=== PATIENT | female | born 1950 | race Caucasian/White ===

== ENCOUNTER 2017-12-08 16:02 | Outpatient (CLI) | payer MEDICARE | END 2017-12-08 16:03 | disposition home or self-care (01) | LOC: LABBT 16:02 | PROVIDERS: ATTEND Internal Medicine Cardiovascular Disease | DX: Z01.810 Encounter for preprocedural cardiovascular examination (principal); R94.39 Abnormal result of other cardiovascular function study | CPT/HCPCS: 93005; 93010 ==

== ENCOUNTER → 2017-12-13 | Day surgery (SDC) | payer MEDICARE ==
[2017-12-08 16:50] VITALS: BMI 30.2
[~2017-12-13] MED LIST: Fentanyl 100 MCG/2 ML VIAL ONE; Heparin 10,000 UNITS/1 ML VIAL ONE; Iopamidol 370 76% 100 ML VIAL ONE; Lidocaine 1% (PF) 30 ML VIAL ONE; Midazolam HCl 2 mg/2 ml Vial ONE; Nitroglycerin 100MG/250ML BOT 250 ML ONE; Verapamil 5 MG/2 ML VIAL ONE
== END ==
LOC: CCL 06:25
PROVIDERS: ATTEND Internal Medicine Cardiovascular Disease
PROC: 4A023N7 Measurement of Cardiac Sampling and Pressure, Left Heart, Percutaneous Approach (ICD-10-PCS; principal; 2017-12-13)
PROC: B2111ZZ Fluoroscopy of Multiple Coronary Arteries using Low Osmolar Contrast (ICD-10-PCS; 2017-12-13)
DX: I25.10 Atherosclerotic heart disease of native coronary artery without angina pectoris (principal); G30.0 Alzheimer's disease with early onset; F02.80 Dementia in other diseases classified elsewhere, unspecified severity, without behavioral disturbance, psychotic disturbance, mood disturbance, and anxiety; I48.2 Chronic atrial fibrillation; Z87.891 Personal history of nicotine dependence; Z79.51 Long term (current) use of inhaled steroids; Z79.82 Long term (current) use of aspirin; Z79.01 Long term (current) use of anticoagulants; Z79.899 Other long term (current) drug therapy
CPT/HCPCS: 93458; C1769; 99152; J1644; J2001; J2250; J3010

== ENCOUNTER 2018-04-19 10:52 | Outpatient (CLI) | payer MEDICARE | END 2018-04-19 10:53 | disposition home or self-care (01) | LOC: BICMAMMO 10:52 | PROVIDERS: ATTEND Family Medicine | DX: Z12.31 Encounter for screening mammogram for malignant neoplasm of breast (principal); N64.89 Other specified disorders of breast | CPT/HCPCS: 77063; 77067 ==

== ENCOUNTER 2018-05-24 09:01 | Outpatient (CLI) | payer MEDICARE ==
--- NOTE | 2018-05-24 11:01 | ULT ---
RIGHT BREAST ULTRASOUND: Date: 05/24/18 HISTORY: Abnormal mammogram. FINDINGS: Correlation is made with mammograms from today. Sonographic evaluation of the right upper outer breast demonstrates a 1.1 x 0.5 x 0.5 cm hypoechoic n onshadowing nodule with echogenic hilum consistent with lymph node, corresponding to the mammographic finding at the 10 o'clock position. IMPRESSION: BIRADS 2: Benign Finding(s) Return to annual mammographic screening. POS: URVASHI
== END 2018-05-24 09:02 | disposition home or self-care (01) ==
LOC: BICMAMMO 09:01
PROVIDERS: ATTEND Family Medicine
DX: R92.2 Inconclusive mammogram (principal)
CPT/HCPCS: 76642; 77065; G0279

== ENCOUNTER 2019-06-05 11:39 | Inpatient (IN) | payer MEDICARE ==
[~2019-06-05 11:39] MED LIST changes: -Fentanyl 100 MCG/2 ML VIAL ONE; -Heparin 10,000 UNITS/1 ML VIAL ONE; -Lidocaine 1% (PF) 30 ML VIAL ONE; -Midazolam HCl 2 mg/2 ml Vial ONE; -Nitroglycerin 100MG/250ML BOT 250 ML ONE; -Verapamil 5 MG/2 ML VIAL ONE
[2019-06-05 11:59] LABS: #Basophils 0.1 thou/uL (0.0-0.2); #Eosinphils 0.1 thou/uL (0.0-0.7); #Lymphocytes 1.6 thou/uL (1.20-3.40); #Monocytes 0.5 thou/uL (0.11-0.59); %Eosinophils 1.9 % (0.0-10.0); %Lymphocytes 30.7 % (21.0-51.0); %Monocytes 8.7 % (0.0-10.0); %Neutrophils 57.8 % (42.0-75.0); Hemoglobin 14.1 g/dL (12.0-16.0); Mean Corpuscular HGB CONC 33.7 g/dL (32.0-36.0); Mean Corpuscular Hemoglobin 29.2 pg (27.0-31.0); Mean Corpuscular Volume 86.9 fL (78.0-98.0); Platelet Count 310 thou/uL (130-400); RBC Distribution Width 11.6 % (11.5-14.5); Red Blood Cell (RBC) Count 4.82 mill/uL (4.20-5.40); White Blood Cell (WBC) Count 5.1 thou/uL (4.8-10.8)
--- NOTE | 2019-06-05 12:03 | CT ---
CT BRAIN WITHOUT CONTRAST: HISTORY:Level 1 stroke. Left-sided deficits, left-sided facial droop and slurred speech COMPARISON:None FINDINGS: There are foci of decreased attenuation in the periventricular white matter, consistent with chronic small vessel ischemic disease. No evidence of acute infarct, hemorrhage, midline shift or abnormal extra-axial fluid collections is seen. The ventricular size is appropriate and the basilar cisterns are patent. The bony calvarium is intact. The visualized paranasal sinuses and mastoid air cells are well aerated. IMPRESSION: No CT evidence of acute intracranial process. Discussed over the telephone with ER physician Dr. Aponte at 11:59 AM
[2019-06-05 12:08] LABS: INR-International Normal Ratio 2.1; Prothrombin Time 23.3 SEC (12.0-14.7)
[2019-06-05 12:09] LABS: PTT 59.3 SEC (22.9-36.1)
[2019-06-05 12:16] LABS: ALT (SGPT) 21 U/L (8-55); AST (SGOT) 25 U/L (5-34); Albumin 4.4 g/dL (3.4-4.8); Alkaline Phosphatase 116 U/L (40-110); Anion Gap 12 mmol/L (10-20); BUN (Urea Nitrogen) 17 mg/dL (9.8-20.1); Bilirubin, Total 0.5 mg/dL (0.2-1.2); CK (CPK) 165 U/L (29-168); Calc. Creatinine Clearance 0 mL/min (70-130); Calcium 9.6 mg/dL (7.8-10.44); Carbon Dioxide 29 mmol/L (23-31); Chloride 102 mmol/L (98-107); Estimated GFR-MDRD 47; Globulin 3.7 g/dL (2.4-3.5); Glucose 113 mg/dL (80-115); Potassium 4.4 mmol/L (3.5-5.1); Protein, Total 8.1 g/dL (6.0-8.3); Sodium 139 mmol/L (136-145)
--- NOTE | 2019-06-05 12:18 | RAD ---
XR Chest 1 View Portable HISTORY: Facial droop with left-sided weakness COMPARISON: None FINDINGS: The heart size is normal. The lungs are well expanded without focal areas of consolidation, pneumothorax or pleural effusions. IMPRESSION: No radiographic evidence of acute cardiopulmonary process.
--- NOTE | 2019-06-05 12:41 | CT ---
CT ANGIOGRAM NECK WITH CONTRAST CT ANGIOGRAM BRAIN WITH CONTRAST: DATE: 06/05/2019 HISTORY: 68-year-old female with acute stroke symptoms: Dysarthria, left upper extremity weakness, and left fa cial droop. TECHNIQUE: After IV contrast injection, arterial bolus chasing technique scan performed from aortopulmonic windo w to vertex of head. Coronal and sagittal 3-D MIP reconstructions. FINDINGS: Brachiocephalic: No stenosis. Right subclavian: No stenosis. Left subclavian: No stenosis. Right vertebral: No stenosis. Mild calcified plaque in intracranial portion. Left vertebral: No stenosis. Mild calcified plaque in intracranial portion. Right common carotid: No stenosis. Left common carotid: No stenosis. Right internal carotid, cervical: Normal Left internal carotid, cervical: Single small focal calcified plaque at origin. No hemodynamically si gnificant stenosis. Carotid siphons: Mild calcified plaque bilaterally. No evidence of high-grade stenosis. Basilar: No high-grade stenosis. Middle cerebral arteries: M1 segments are bilaterally patent with no evidence of high-grade stenosis or thrombosis. Anterior cerebral arteries: Bilateral A1 and A2 segments demonstrate no occlusion or thrombosis. Righ t A1 segment appears to be fenestrated. Posterior cerebral arteries: Bilaterally patent. This stroke alert protocol report was called by Dr. Ray to Dr. Aponte's medical technologist generalist Aliya macias at 12:38 PM on 06/05/2019 IMPRESSION: 1. No evidence of high-grade stenosis of major arteries of neck. 2. No evidence of M1 segment middle cerebral artery thrombosis.
[2019-06-05] MEDS ORDERED: Aspirin 325 MG TAB ONE (13:28)
[2019-06-05 15:27] VITALS: BMI 29.5
[2019-06-05] MEDS ORDERED: Ondansetron ODT 4 MG TAB PO PRN (15:28)
[2019-06-05] MEDS ORDERED: HYDROcodone/Acetaminophen 5/325 mg Tablet PO PRN (15:28)
[2019-06-05] MEDS ORDERED: Senokot S 8.6-50 MG TAB PO PRN (15:28)
[2019-06-05] MEDS ORDERED: Ondansetron PF 4 MG/2 ML Vial IVP PRN (15:28)
[2019-06-05] MEDS ORDERED: HYDROcodone/Acetaminophen 7.5/325 mg Tablet PO PRN (15:28)
[2019-06-05] MEDS ORDERED: Bisacodyl 5 MG TAB PO PRN (15:28)
[2019-06-05] MEDS ORDERED: Acetaminophen 325 MG TAB PO PRN (15:28)
[2019-06-05] MEDS ORDERED: Benzonatate 100 MG CAP PO PRN (15:32)
[2019-06-05] MEDS ORDERED: Labetalol HCl 100 MG/20 ML VIAL SLOW IVP PRN (15:32)
[2019-06-05] MEDS ORDERED: Docusate 100 MG CAP PO PRN (15:32)
--- NOTE | 2019-06-05 16:34 | PDOC.HHP ---
Hospitalist HPI - History of Present Illness Left sided weakness History of Present Illness: Ms. Diamond is a very pleasant 68-year-old white female with past medical history of atrial fibrillation on Coumadin and dementia who presents with left- sided weakness. Patient was in her regular state of good health when all of a sudden this morning at breakfast her daughter noticed that she was having profound weakness on the left side of her body. Patient was unable to move her arm or her leg. Patient did not have any precipitating or alleviating factors. Patient denies palpitations prior to event. Patient did not lose consciousness. Patient did not fall. Patient is not have any trauma to head or limbs. Patient did not have any trouble speaking though she was very confused at the time. By the time the patient arrived to the emergency department her symptoms have resolved completely. I find the patient in the stroke unit she is sitting upright in bed she is breathing well on room air. Patient has no appreciated focal neurologic deficits. Patient is talking fleuntly in full sentences. Patient knows her name, she knows she is in [facility], she admits that she does not know the year and guesses it is 2016. Patient does know the season is fall however she does not know which month it is. 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 Patient does acknowledge she has memory problems. Patient has no pain. Patient has no other acute complaints at this time. Patient admitted to stroke unit for further evaluation. Neurology consultation requested for further recommendations. Hospitalist ROS - Review of Systems All other systems reviewed; all pertinent +/- noted in HPI/Subj Hospitalist History - Past Medical History Source: patient Cardiac: reports: AFIB, HTN, Hyperlipidemia CHIEF PROJECTIONIST: reports: Dementia. denies: CVA, Seizure, TIA Gastrointestinal: reports: GERD Musculoskeletal: reports: Osteoarthritis - Family History Family History: reports: hypertension, Other (atrial fibrillation) - Social History Alcohol: reports: None Drugs: reports: none Living Situation: With Family Domestic Violence: Negative Activity level: independent ambulation - Exam General Appearance: NAD Eye: PERRL, anicteric sclera ENT: normocephalic atraumatic, no oropharyngeal lesions, moist mucosa Neck: supple, symmetric, no lymphadenopathy Heart: no murmur, no gallops, no rubs, irregular Respiratory: CTAB, no wheezes, no rales, no ronchi, normal chest expansion Gastrointestinal: soft, non-tender, non-distended, normal bowel sounds, no palpable masses, no guarding, no rigidity Extremities: no edema Skin: no lesions, no rashes Neurological: cranial nerve grossly intact, normal sensation to touch, no focal deficits Musculoskeletal: normal tone, normal strength, no muscle wasting Psychiatric: normal affect, oriented to person, oriented to place Hospitalist Results - Labs Result Diagrams: 06/05/19 11:48 06/05/19 11:48 Lab results: WBC 5.1 thou/uL (4.8-10.8) 06/05/19 11:48 Hgb 14.1 g/dL (12.0-16.0) 06/05/19 11:48 Hct 41.9 % (36.0-47.0) 06/05/19 11:48 MCV 86.9 fL (78.0-98.0) 06/05/19 11:48 Plt Count 310 thou/uL (130-400) 06/05/19 11:48 Neutrophils % 57.8 % (42.0-75.0) 06/05/19 11:48 Sodium 139 mmol/L (136-145) 06/05/19 11:48 Potassium 4.4 mmol/L (3.5-5.1) 06/05/19 11:48 Chloride 102 mmol/L (98-107) 06/05/19 11:48 Carbon Dioxide 29 mmol/L (23-31) 06/05/19 11:48 BUN 17 mg/dL (9.8-20.1) 06/05/19 11:48 Creatinine 1.16 mg/dL (0.6-1.1) H 06/05/19 11:48 Glucose 113 mg/dL (80-115) 06/05/19 11:48 Calcium 9.6 mg/dL (7.8-10.44) 06/05/19 11:48 Total Bilirubin 0.5 mg/dL (0.2-1.2) 06/05/19 11:48 AST 25 U/L (5-34) 06/05/19 11:48 ALT 21 U/L (8-55) 06/05/19 11:48 Alkaline Phosphatase 116 U/L (40-110) H 06/05/19 11:48 Creatine Kinase 165 U/L (29-168) 06/05/19 11:48 Troponin I Less than 0.010 ng/mL (< 0.028) 06/05/19 11:48 Serum Total Protein 8.1 g/dL (6.0-8.3) 06/05/19 11:48 Albumin 4.4 g/dL (3.4-4.8) 06/05/19 11:48 - Radiology Interpretation CT scan - head Status: image reviewed by me CT scan - chest Status: image reviewed by me Hospitalist H&P A/P - Problem (1) TIA (transient ischemic attack) Code(s): G45.9 - TRANSIENT CEREBRAL ISCHEMIC ATTACK, UNSPECIFIED Status: Acute (2) Afib Code(s): I48.91 - UNSPECIFIED ATRIAL FIBRILLATION Status: Chronic (3) HTN (hypertension) Code(s): I10 - ESSENTIAL (PRIMARY) HYPERTENSION Status: Chronic (4) HLD (hyperlipidemia) Code(s): E78.5 - HYPERLIPIDEMIA, UNSPECIFIED Status: Chronic (5) Osteoarthritis Code(s): M19.90 - UNSPECIFIED OSTEOARTHRITIS, UNSPECIFIED SITE Status: Chronic (6) Dementia Code(s): F03.90 - UNSPECIFIED DEMENTIA WITHOUT BEHAVIORAL DISTURBANCE Status: Chronic (7) Depression Code(s): F32.9 - MAJOR DEPRESSIVE DISORDER, SINGLE EPISODE, UNSPECIFIED Status : Chronic - Plan Plan: Plan: medical unit with telemetry stroke unit neurology consultation, recommendations appreciated MRI brain echocardiogram metabolic workup No tPA given secondary to low NIH scale and resolution of symptoms CTA head and neck is negative CT had negative continue home medications is able patient is therapeutic on Coumadin daily PT/INR PT/OT evaluation treatment healthy heart diet replace electrolytes as needed
--- NOTE | 2019-06-05 17:02 | MRI ---
BRAIN MRI WITHOUT CONTRAST: 06/05/19 COMPARISON: None. HISTORY: Difficulty using hands, clinical concern for acute infarction. TECHNIQUE: Multiplanar and multisequence MR imaging of the brain provided without contrast. FINDINGS: The diffusion weighted imaging demonstrates no evidence for acute infarction. The axial gradient echo imaging demonstrates no evidence for intracranial hemorrhage. Arterial flow voids at the axial level of the skull base appear grossly unremarkable on the T2 weight ed imaging. There is multifocal periventricular, deep, and subcortical white matter T2 and FLAIR hyperintensity, evidence of significant small vessel disease. There is associated mild/moderate cerebral volume loss . There is no midline shift or mass effect. Regional bone marrow signal intensity appears within norm al limits. IMPRESSION: Small vessel disease and cerebral volume loss with no evidence for acute infarction. POS: TPC
[2019-06-05] MEDS: Warfarin Sodium 5 MG TAB PO SCH (18:12)
[2019-06-05] MEDS: Aspirin 81 mg Enteric Coated Tablet PO SCH (21:19)
[2019-06-05] MEDS: Simvastatin 5 MG TAB PO SCH (21:19)
[2019-06-05] MEDS: Famotidine 20 MG TAB PO SCH (21:19)
[2019-06-05] MEDS: diphenhydrAMINE 25 MG CAP PO PRN (21:20)
[2019-06-05] MEDS: busPIRone HCl 10 MG TAB PO SCH (21:20)
[2019-06-05] MEDS: Donepezil HCl 5 MG TAB PO SCH (21:20)
[2019-06-06 04:49] LABS: #Eosinphils 0.1 thou/uL (0.0-0.7); #Lymphocytes 2.1 thou/uL (1.20-3.40); #Monocytes 0.6 thou/uL (0.11-0.59); #Neutrophils 2.3 thou/uL (1.40-6.50); %Basophils 0.9 % (0.0-1.0); %Eosinophils 2.2 % (0.0-10.0); %Lymphocytes 41.2 % (21.0-51.0); %Monocytes 11.5 % (0.0-10.0); %Neutrophils 44.2 % (42.0-75.0); Hemoglobin 12.5 g/dL (12.0-16.0); Mean Corpuscular Hemoglobin 29.5 pg (27.0-31.0); Mean Platelet Volume 7.3 fL (7.4-10.4); Platelet Count 249 thou/uL (130-400); RBC Distribution Width 11.6 % (11.5-14.5); Red Blood Cell (RBC) Count 4.24 mill/uL (4.20-5.40); White Blood Cell (WBC) Count 5.2 thou/uL (4.8-10.8)
[2019-06-06 04:56] LABS: INR-International Normal Ratio 2.3; Prothrombin Time 25.2 SEC (12.0-14.7)
[2019-06-06 05:11] LABS: Anion Gap 11 mmol/L (10-20); BUN (Urea Nitrogen) 17 mg/dL (9.8-20.1); Calc. Creatinine Clearance 71 mL/min (70-130); Carbon Dioxide 27 mmol/L (23-31); Cardiac Risk 3.9 (Less than 4.5); Chloride 105 mmol/L (98-107); Cholesterol 175 mg/dl (< 200 Desired); Estimated GFR-MDRD 55; Glucose 94 mg/dL (80-115); HDL Cholesterol 45 mg/dL (>60 Neg Risk); LDL Cholesterol, Calculated 105 mg/dL; Potassium 4.2 mmol/L (3.5-5.1); Sodium 139 mmol/L (136-145); Triglycerides 125 mg/dL (Less than 150)
[2019-06-06] MEDS ORDERED: Prevnar 13-Val Conj/PF 0.5 ML SYRINGE IM ONE (09:00)
[2019-06-06] MEDS ORDERED: FLU VACC TS2019-20(65YR UP)/PF 180 MCG/0.5 ML SYRINGE IM ONE (09:00)
[2019-06-06] MEDS: Multivit, Therapeutic 1 TAB PO SCH (09:59)
[2019-06-06] MEDS: Famotidine 20 MG TAB PO SCH ×2 (09:59→20:23)
[2019-06-06] MEDS: busPIRone HCl 10 MG TAB PO SCH ×2 (09:59→20:22)
[2019-06-06] MEDS: FLUoxetine HCl 10 MG CAP PO SCH (09:59)
[2019-06-06] MEDS: Loratadine 10 MG TAB PO SCH (10:00)
[2019-06-06] MEDS: Bisoprolol Fumarate 5 MG TAB PO SCH (10:00)
[2019-06-06] MEDS: Fluticasone Propionate Nasal Spray 16 gm Bottle NASAL SCH (10:01)
--- NOTE | 2019-06-06 15:24 | PDOC.HOSPP ---
- Subjective Encounter Date: 06/06/19 Encounter Time: 15:22 Subjective: The patient has mild tingling of the hands on and off, no other neurological findings - Objective Vital Signs & Weight: Vital Signs (12 hours) Temp Pulse Resp BP Pulse Ox 06/06/19 12:00 97.4 F L 84 16 101/61 95 06/06/19 07:45 98.6 F 76 14 111/72 96 06/06/19 03:33 98.5 F 72 16 122/63 98 Weight Weight 180 lb I&O: 06/05/19 06/06/19 06/07/19 06:59 06:59 06:59 Intake Total 700 Balance 700 Result Diagrams: 06/06/19 04:23 06/06/19 04:23 Hospitalist ROS - Medication Medications: Active Medications Generic Name Dose Route Start Last Admin Trade Name Freq PRN Reason Stop Dose Admin Aspirin 81 mg 06/05/19 21:00 06/05/19 21:19 Ecotrin PO 81 mg QPM KIAN Administration Bisoprolol Fumarate 2.5 mg 06/06/19 09:00 06/06/19 10:00 Zebeta PO 2.5 mg QAM KIAN Administration Buspirone HCl 15 mg 06/05/19 21:00 06/06/19 09:59 Buspar PO 15 mg BID KIAN Administration Diphenhydramine HCl 25 mg 06/05/19 15:32 06/05/19 21:20 Benadryl PO 25 mg Q6H PRN Administration Itching & Insomnia Donepezil HCl 5 mg 06/05/19 21:00 06/05/19 21:20 Aricept PO 5 mg HS KIAN Administration Famotidine 20 mg 06/05/19 21:00 06/06/19 09:59 Pepcid PO 20 mg BID KIAN Administration Fluoxetine HCl 50 mg 06/06/19 09:00 06/06/19 09:59 Prozac PO 50 mg QAM KIAN Administration Fluticasone Propionate 0 gm 06/06/19 09:00 06/06/19 10:01 Flonase Nasal [place] NASAL 1 spr DAILY KIAN Administration Loratadine 10 mg 06/06/19 09:00 06/06/19 10:00 Claritin PO 10 mg QAM KIAN Administration Multivitamins 1 tab 06/06/19 09:00 10/17/19 09:59 Theragran PO 1 tab DAILY KIAN Administration Quetiapine Fumarate 12.5 mg 06/05/19 21:00 06/05/19 21:20 Seroquel PO 12.5 mg QPM KIAN Administration Simvastatin 10 mg 06/05/19 21:00 06/05/19 21:19 Zocor PO 10 mg HS KIAN Administration Warfarin Sodium 5 mg 06/05/19 17:00 06/05/19 18:12 Coumadin PO 5 mg DAILY@1700 KIAN Administration - Exam General Appearance: NAD, awake alert, ill appearing Eye: PERRL, anicteric sclera, scleral icterus ENT: normocephalic atraumatic, no oropharyngeal lesions, moist mucosa, dry oral mucosa Neck: supple, symmetric, no JVD, no thyromegaly, no lymphadenopathy, no carotid bruit, JVD Heart: RRR, no murmur, no gallops, no rubs, normal peripheral pulses, irregular , diminshed peripheral pulses, murmur present, II/IV, III/IV Respiratory: CTAB, no wheezes, no rales, no ronchi, normal chest expansion, no tachypnea, normal percussion, rales, rhonchi, tachypneic, wheezes Gastrointestinal: soft, non-tender, non-distended, normal bowel sounds, no palpable masses, no hepatomegaly, no splenomegaly, no bruit, no guarding, no rigidity, tender to palpation, distended, diminished bowl sounds, voluntary guarding Extremities: no cyanosis, no clubbing, no edema, 1+ LE edema, 2+ LE edema, clubbing Skin: normal turgor, no lesions, no rashes, tenting Neurological: cranial nerve grossly intact, normal sensation to touch, no weakness, no focal deficits, no new deficit, facial droop, hemiplegia, speech deficit, vision deficit Musculoskeletal: normal tone, normal strength, no muscle wasting, generalized weakness, diffuse muscle atrophy Psychiatric: normal affect, normal behavior, A&O x 3, oriented to person, oriented to place, oriented to time, not oriented, flat affect, somnolent, lethargic Hosp A/P - Plan plan discussed w/ family, PT/OT (Await 2 D echo, out patient neurology work up if the echo is normal), DVT proph w/lovenox
[2019-06-06] MEDS: Warfarin Sodium 5 MG TAB PO SCH (18:19)
[2019-06-06] MEDS: Melatonin 3 MG TAB PO PRN (20:23)
[2019-06-06] MEDS: Aspirin 81 mg Enteric Coated Tablet PO SCH (20:23)
[2019-06-06] MEDS: Donepezil HCl 5 MG TAB PO SCH (20:23)
[2019-06-06] MEDS: Simvastatin 5 MG TAB PO SCH (20:28)
[2019-06-07 05:13] LABS: INR-International Normal Ratio 1.9; Prothrombin Time 22.1 SEC (12.0-14.7)
[2019-06-07] MEDS: Fluticasone Propionate Nasal Spray 16 gm Bottle NASAL SCH (10:06)
[2019-06-07] MEDS: FLUoxetine HCl 10 MG CAP PO SCH (10:07)
[2019-06-07] MEDS: Bisoprolol Fumarate 5 MG TAB PO SCH (10:08)
[2019-06-07] MEDS: busPIRone HCl 10 MG TAB PO SCH ×2 (10:09→21:07)
[2019-06-07] MEDS: Multivit, Therapeutic 1 TAB PO SCH (10:09)
[2019-06-07] MEDS: Loratadine 10 MG TAB PO SCH (10:10)
[2019-06-07] MEDS: Famotidine 20 MG TAB PO SCH ×2 (10:10→21:07)
--- NOTE | 2019-06-07 11:47 | PDOC.HOSPP ---
- Subjective Encounter Date: 06/07/19 Encounter Time: 11:46 Subjective: the patient had an Echo, shows 40-50% EF, had an episode of Vtach, non sustained overnight. - Objective Vital Signs & Weight: Vital Signs (12 hours) Temp Pulse Resp BP Pulse Ox 06/07/19 03:55 98.4 F 111 H 16 104/68 98 Weight Weight 180 lb I&O: 06/06/19 06/07/19 06/08/19 06:59 06:59 06:59 Intake Total 700 560 Balance 700 560 Result Diagrams: 06/06/19 04:23 06/06/19 04:23 Hospitalist ROS - Medication Medications: Active Medications Generic Name Dose Route Start Last Admin Trade Name Freq PRN Reason Stop Dose Admin Aspirin 81 mg 06/05/19 21:00 06/06/19 20:23 Ecotrin PO 81 mg QPM KIAN Administration Bisoprolol Fumarate 2.5 mg 06/06/19 09:00 06/07/19 10:08 Zebeta PO 2.5 mg QAM KIAN Administration Buspirone HCl 15 mg 06/05/19 21:00 06/07/19 10:09 Buspar PO 15 mg BID KIAN Administration Diphenhydramine HCl 25 mg 06/05/19 15:32 06/05/19 21:20 Benadryl PO 25 mg Q6H PRN Administration Itching & Insomnia Donepezil HCl 5 mg 06/05/19 21:00 06/06/19 20:23 Aricept PO 5 mg HS KIAN Administration Famotidine 20 mg 06/05/19 21:00 06/07/19 10:10 Pepcid PO 20 mg BID KIAN Administration Fluoxetine HCl 50 mg 06/06/19 09:00 06/07/19 10:07 Prozac PO 50 mg QAM KIAN Administration Fluticasone Propionate 0 gm 06/06/19 09:00 06/07/19 10:06 Flonase Nasal [place] NASAL 2 spr DAILY KIAN Administration Loratadine 10 mg 06/06/19 09:00 06/07/19 10:10 Claritin PO 10 mg QAM KIAN Administration Melatonin 3 mg 06/05/19 15:32 06/06/19 20:23 Melatonin PO 3 mg HSPRN PRN Administration Insomnia Multivitamins 1 tab 06/06/19 09:00 06/07/19 10:09 Theragran PO 1 tab DAILY KIAN Administration Quetiapine Fumarate 12.5 mg 06/05/19 21:00 06/06/19 20:23 Seroquel PO 12.5 mg QPM KIAN Administration Simvastatin 10 mg 06/05/19 21:00 06/06/19 20:28 Zocor PO 10 mg HS KIAN Administration Warfarin Sodium 5 mg 06/05/19 17:00 06/06/19 18:19 Coumadin PO 5 mg DAILY@1700 KIAN Administration - Exam General Appearance: NAD, awake alert, ill appearing Eye: PERRL, anicteric sclera, scleral icterus ENT: normocephalic atraumatic, no oropharyngeal lesions, moist mucosa, dry oral mucosa Neck: supple, symmetric, no JVD, no thyromegaly, no lymphadenopathy, no carotid bruit, JVD Heart: RRR, no murmur, no gallops, no rubs, normal peripheral pulses, irregular , diminshed peripheral pulses, murmur present, II/IV, III/IV Respiratory: CTAB, no wheezes, no rales, no ronchi, normal chest expansion, no tachypnea, normal percussion, rales, rhonchi, tachypneic, wheezes Gastrointestinal: soft, non-tender, non-distended, normal bowel sounds, no palpable masses, no hepatomegaly, no splenomegaly, no bruit, no guarding, no rigidity, tender to palpation, distended, diminished bowl sounds, voluntary guarding Extremities: no cyanosis, no clubbing, no edema, 1+ LE edema, 2+ LE edema, clubbing Hosp A/P (1) V-tach Code(s): I47.2 - VENTRICULAR TACHYCARDIA Status: Acute (2) TIA (transient ischemic attack) Code(s): G45.9 - TRANSIENT CEREBRAL ISCHEMIC ATTACK, UNSPECIFIED Status: Acute - Plan plan discussed w/ family (cardiology consulted for poor EF and non sustained paroxysmal V-tach)
[2019-06-07] MEDS: Warfarin Sodium 5 MG TAB PO SCH (16:19)
[2019-06-07] MEDS: Melatonin 3 MG TAB PO PRN (21:07)
[2019-06-07] MEDS: Donepezil HCl 5 MG TAB PO SCH (21:07)
[2019-06-07] MEDS: Simvastatin 5 MG TAB PO SCH (21:07)
[2019-06-07] MEDS: Aspirin 81 mg Enteric Coated Tablet PO SCH (21:07)
[2019-06-08 05:37] LABS: INR-International Normal Ratio 1.8
[2019-06-08] MEDS: busPIRone HCl 10 MG TAB PO SCH ×2 (09:42→20:45)
[2019-06-08] MEDS: Enoxaparin Sodium 80 MG/0.8 ML SYRINGE SC SCH ×2 (09:42→20:48)
[2019-06-08] MEDS: FLUoxetine HCl 10 MG CAP PO SCH (09:42)
[2019-06-08] MEDS: Multivit, Therapeutic 1 TAB PO SCH (09:42)
[2019-06-08] MEDS: Famotidine 20 MG TAB PO SCH ×2 (09:43→20:47)
[2019-06-08] MEDS: Loratadine 10 MG TAB PO SCH (09:43)
[2019-06-08] MEDS: Fluticasone Propionate Nasal Spray 16 gm Bottle NASAL SCH (09:43)
--- NOTE | 2019-06-08 11:12 | PDOC.HOSPP ---
- Subjective Encounter Date: 06/08/19 Encounter Time: 07:35 Subjective: Expresses no specific complaint. - Objective Vital Signs & Weight: Vital Signs (12 hours) Temp Pulse Resp BP Pulse Ox 06/08/19 08:00 96 06/08/19 07:59 98.3 F 80 22 H 102/58 L 96 06/08/19 03:40 97.5 F L 89 16 96/62 96 06/07/19 23:36 98.1 F 90 16 111/66 98 Weight Weight 181 lb I&O: 06/07/19 06/08/19 06/09/19 06:59 06:59 06:59 Intake Total 560 240 Balance 560 240 Result Diagrams: 06/06/19 04:23 06/06/19 04:23 Hospitalist ROS - Medication Medications: Active Medications Generic Name Dose Route Start Last Admin Trade Name Freq PRN Reason Stop Dose Admin Aspirin 81 mg 06/05/19 21:00 06/07/19 21:07 Ecotrin PO 81 mg QPM KIAN Administration Buspirone HCl 15 mg 06/05/19 21:00 06/08/19 09:42 Buspar PO 15 mg BID KIAN Administration Diphenhydramine HCl 25 mg 06/05/19 15:32 06/05/19 21:20 Benadryl PO 25 mg Q6H PRN Administration Itching & Insomnia Donepezil HCl 5 mg 06/05/19 21:00 06/07/19 21:07 Aricept PO 5 mg HS KIAN Administration Enoxaparin Sodium 80 mg 06/08/19 09:00 06/08/19 09:42 Lovenox SC 06/09/19 23:59 80 mg 0900,2100 KIAN Administration Famotidine 20 mg 06/05/19 21:00 06/08/19 09:43 Pepcid PO 20 mg BID KIAN Administration Fluoxetine HCl 50 mg 06/06/19 09:00 06/08/19 09:42 Prozac PO 50 mg QAM KIAN Administration Fluticasone Propionate 0 gm 06/06/19 09:00 06/08/19 09:43 Flonase Nasal [place] NASAL 1 spr DAILY KIAN Administration Loratadine 10 mg 06/06/19 09:00 06/08/19 09:43 Claritin PO 10 mg QAM KIAN Administration Melatonin 3 mg 06/05/19 15:32 06/07/19 21:07 Melatonin PO 3 mg HSPRN PRN Administration Insomnia Multivitamins 1 tab 06/06/19 09:00 06/08/19 09:42 Theragran PO 1 tab DAILY KIAN Administration Quetiapine Fumarate 12.5 mg 06/05/19 21:00 06/07/19 21:07 Seroquel PO 12.5 mg QPM KIAN Administration - Exam General Appearance: NAD, awake alert ENT: normocephalic atraumatic, moist mucosa Neck: supple, no JVD Heart: irregular Respiratory: CTAB Gastrointestinal: soft Extremities: no edema Neurological: no focal deficits Hosp A/P (1) Sinus arrest Code(s): I45.5 - OTHER SPECIFIED HEART BLOCK Status: Acute Plan: Seen by cardiology. EP consulted. For possible pacemaker. (2) TIA (transient ischemic attack) Code(s): G45.9 - TRANSIENT CEREBRAL ISCHEMIC ATTACK, UNSPECIFIED Status: Acute (3) Afib Code(s): I48.91 - UNSPECIFIED ATRIAL FIBRILLATION Status: Chronic (4) Dementia Code(s): F03.90 - UNSPECIFIED DEMENTIA WITHOUT BEHAVIORAL DISTURBANCE Status: Chronic (5) HTN (hypertension) Code(s): I10 - ESSENTIAL (PRIMARY) HYPERTENSION Status: Chronic Plan: BP is controlled.. - Plan F/u with cardiology..
--- NOTE | 2019-06-08 15:45 | CON ---
DATE OF CONSULTATION: HISTORY OF PRESENT ILLNESS: Anamika Diamond is a pleasant 68-year-old white female, admitted with left-sided weakness. She was evaluated by Dr. Palencia in October 2017 in the office, seen for episodes of syncope. She had chronic atrial fibrillation. It was felt that these episodes were probably orthostatic in nature. She also underwent cardiac PET scan, which revealed mild ischemia of the apex. She underwent cardiac catheterization on December 13, 2017. She had normal left ventricular function. She had a small first diagonal about 1 mm in size with 60% ostial lesion, but no other significant stenosis. She states that she again had a syncopal episode approximately 2 weeks ago. With her history of dementia, however, I am uncertain of the reliability of this history. She is admitted with weakness on the left side of her body. However, the patient is uncertain why she was admitted and denies any left-sided weakness. On exam when she reached the hospital, apparently this resolved. Since being admitted here, she has had a 15-second episode of ventricular asystole followed by extreme bradycardia. It is uncertain if she had any symptoms associated with that, although I am certain she must have passed out. It is of note in the progress note from yesterday, it stated that she had nonsustained ventricular tachycardia. However, in reviewing her rhythm with the measurement technician as well as the rhythm strips in the graphics section, I do not see any episodes of ventricular tachycardia. PAST MEDICAL HISTORY: Chronic atrial fibrillation, hypertension, hyperlipidemia , and Alzheimer's dementia. MEDICATIONS: 1. Aspirin 81 daily. 2. Bisoprolol 2.5 mg q.a.m. 3. Buspirone 0.5 mg b.i.d. 4. Aricept 5 mg at bedtime. 5. Claritin 10 mg daily. 6. Memantine 5 mg daily. 7. Multivitamin daily. 8. KCl 99 mg q.a.m. 9. Pravastatin 80 at bedtime. 10. Ranitidine 150 q.p.m. 11. Warfarin 5 mg. ALLERGIES: NONE. SOCIAL HISTORY: She does not smoke or drink. REVIEW OF SYSTEMS: Ten-point review of systems is otherwise unremarkable. PHYSICAL EXAMINATION: VITAL SIGNS: Blood pressure 102/58, pulse of 80. HEENT: PERRL. NECK: Supple. CHEST: Clear. CARDIAC: S1 and S2 normal without any S3, S4, or murmurs. Carotid upstrokes normal without bruits. ABDOMEN: Normal bowel sounds. EXTREMITIES: Revealed no clubbing, cyanosis, or edema. NEUROLOGICAL: Grossly intact with normal strength and sensation. SKIN: Warm and dry. LABORATORY DATA: EKG revealed atrial fibrillation with rate of 81 per minute with nonspecific ST changes. Head CT is unremarkable. CT angiogram of the cerebral arteries revealed no high-grade stenosis of the major arteries of the neck and no significant intracranial lesions. Brain MRI revealed small vessel disease and cerebral volume loss. Chest x-ray is unremarkable. Echocardiogram revealed ejection fraction of 40% to 45%, reduced right ventricular systolic function with mild right ventricular enlargement, mild left atrial enlargement, mild right atrial enlargement, mild mitral regurgitation, thickening of the aortic valve leaflets , and mild tricuspid regurgitation. CBC is unremarkable. INR 1.8. Sodium 139, potassium 4.2, chloride 105, carbon dioxide 27, BUN 17, and creatinine 1.01. Cholesterol 175, triglycerides 125, HDL 45, and LDL 105. TSH is normal. IMPRESSION: 1. Transient ischemic attack with left-sided weakness, which appears to have resolved. This certainly may be related to her subtherapeutic INR. 2. Chronic atrial fibrillation. 3. Episodes of syncope in the past, now with documented 15-second asystole. 4. Hypertension. 5. Hyperlipidemia with LDL of 105. 6. Osteoarthritis. 7. Dementia. 8. Mild left ventricular dysfunction with ejection fraction of 40% to 45%. PLAN: The situation discussed with the patient. With her 15 seconds of asystole, I would at the present time discontinue her low-dose bisoprolol. She certainly needs pacemaker insertion. I will discontinue her Coumadin to allow the INR to drift downward and we will cover with Lovenox 1 mg/kg b.i.d. until time to place the pacemaker. With her left ventricular dysfunction, it would probably be best to place a biventricular pacemaker with a single-chamber pacemaker. Electrophysiology will be consulted on Monday in regard to this. Also with LDL of 105, I will change her to atorvastatin 40 mg in the hope of reducing this down below 100. Job ID: [id number] MTDD
[2019-06-08] MEDS: Atorvastatin Calcium 40 MG TAB PO SCH (20:47)
[2019-06-08] MEDS: Donepezil HCl 5 MG TAB PO SCH (20:47)
[2019-06-08] MEDS: Aspirin 81 mg Enteric Coated Tablet PO SCH (20:47)
[2019-06-08] MEDS: Melatonin 3 MG TAB PO PRN (20:49)
[2019-06-09 05:16] LABS: INR-International Normal Ratio 1.8; Prothrombin Time 20.4 SEC (12.0-14.7)
[2019-06-09] MEDS: Enoxaparin Sodium 80 MG/0.8 ML SYRINGE SC SCH ×2 (09:15→20:46)
[2019-06-09] MEDS: busPIRone HCl 10 MG TAB PO SCH ×2 (09:15→20:45)
[2019-06-09] MEDS: Multivit, Therapeutic 1 TAB PO SCH (09:16)
[2019-06-09] MEDS: Famotidine 20 MG TAB PO SCH ×2 (09:16→20:45)
[2019-06-09] MEDS: FLUoxetine HCl 10 MG CAP PO SCH (09:16)
[2019-06-09] MEDS: Loratadine 10 MG TAB PO SCH (09:16)
[2019-06-09] MEDS: Fluticasone Propionate Nasal Spray 16 gm Bottle NASAL SCH (09:17)
--- NOTE | 2019-06-09 09:36 | PDOC.HOSPP ---
- Subjective Encounter Date: 06/09/19 Encounter Time: 07:20 Subjective: No new complaint... - Objective Vital Signs & Weight: Vital Signs (12 hours) Temp Pulse Resp BP BP Pulse Ox 06/09/19 08:06 97.5 F L 98 14 116/58 L 93 L 06/09/19 08:00 93 18 121/68 97 06/09/19 04:00 97.4 F L 81 16 116/72 96 06/08/19 23:37 98.2 F 83 18 112/66 96 Weight Weight 181 lb I&O: 06/08/19 06/09/19 06/10/19 06:59 06:59 06:59 Intake Total 1252 Balance 1252 Result Diagrams: 06/06/19 04:23 06/06/19 04:23 Hospitalist ROS - Medication Medications: Active Medications Generic Name Dose Route Start Last Admin Trade Name Freq PRN Reason Stop Dose Admin Aspirin 81 mg 06/05/19 21:00 06/08/19 20:47 Ecotrin PO 81 mg QPM KIAN Administration Atorvastatin Calcium 40 mg 06/08/19 21:00 06/08/19 20:47 Lipitor PO 40 mg HS KIAN Administration Buspirone HCl 15 mg 06/05/19 21:00 06/09/19 09:15 Buspar PO 15 mg BID KIAN Administration Diphenhydramine HCl 25 mg 06/05/19 15:32 06/05/19 21:20 Benadryl PO 25 mg Q6H PRN Administration Itching & Insomnia Donepezil HCl 5 mg 06/05/19 21:00 06/08/19 20:47 Aricept PO 5 mg HS KIAN Administration Enoxaparin Sodium 80 mg 06/08/19 09:00 06/09/19 09:15 Lovenox SC 06/09/19 23:59 80 mg 0900,2100 KIAN Administration Famotidine 20 mg 06/05/19 21:00 06/09/19 09:16 Pepcid PO 20 mg BID KIAN Administration Fluoxetine HCl 50 mg 06/06/19 09:00 06/09/19 09:16 Prozac PO 50 mg QAM KIAN Administration Fluticasone Propionate 0 gm 06/06/19 09:00 06/09/19 09:17 Flonase Nasal [place] NASAL 1 spr DAILY KIAN Administration Loratadine 10 mg 06/06/19 09:00 06/09/19 09:16 Claritin PO 10 mg QAM KIAN Administration Melatonin 3 mg 06/05/19 15:32 06/08/19 20:49 Melatonin PO 3 mg HSPRN PRN Administration Insomnia Multivitamins 1 tab 06/06/19 09:00 06/09/19 09:16 Theragran PO 1 tab DAILY KIAN Administration Ondansetron HCl 4 mg 06/05/19 15:28 06/08/19 22:52 Zofran IVP 4 mg Q6H PRN Administration Nausea/Vomiting Quetiapine Fumarate 12.5 mg 06/05/19 21:00 06/08/19 20:46 Seroquel PO 12.5 mg QPM KIAN Administration - Exam Neck: no JVD Heart: RRR Respiratory: CTAB Gastrointestinal: soft Extremities: no edema Neurological - other findings: Moves all limbs.. Hosp A/P (1) Sinus arrest Code(s): I45.5 - OTHER SPECIFIED HEART BLOCK Status: Acute Plan: For possible pacemaker placement.. (2) TIA (transient ischemic attack) Code(s): G45.9 - TRANSIENT CEREBRAL ISCHEMIC ATTACK, UNSPECIFIED Status: Acute (3) Afib Code(s): I48.91 - UNSPECIFIED ATRIAL FIBRILLATION Status: Chronic (4) Dementia Code(s): F03.90 - UNSPECIFIED DEMENTIA WITHOUT BEHAVIORAL DISTURBANCE Status: Chronic (5) HTN (hypertension) Code(s): I10 - ESSENTIAL (PRIMARY) HYPERTENSION Status: Chronic - Plan F/u with cardiology.. For possible pacemaker placement..
[2019-06-09] MEDS: Aspirin 81 mg Enteric Coated Tablet PO SCH (20:45)
[2019-06-09] MEDS: Atorvastatin Calcium 40 MG TAB PO SCH (20:45)
[2019-06-09] MEDS: Melatonin 3 MG TAB PO PRN (20:45)
[2019-06-09] MEDS: Donepezil HCl 5 MG TAB PO SCH (20:46)
[2019-06-10 05:59] LABS: INR-International Normal Ratio 1.5; Prothrombin Time 18.1 SEC (12.0-14.7)
[2019-06-10] MEDS: Fluticasone Propionate Nasal Spray 16 gm Bottle NASAL SCH (08:41)
[2019-06-10] MEDS: busPIRone HCl 10 MG TAB PO SCH ×2 (08:42→23:02)
[2019-06-10] MEDS: Loratadine 10 MG TAB PO SCH (08:43)
[2019-06-10] MEDS: Famotidine 20 MG TAB PO SCH ×2 (08:43→23:02)
[2019-06-10] MEDS: Multivit, Therapeutic 1 TAB PO SCH (08:43)
[2019-06-10] MEDS: FLUoxetine HCl 10 MG CAP PO SCH (08:44)
--- NOTE | 2019-06-10 11:39 | PDOC.HOSPP ---
- Subjective Encounter Date: 06/10/19 Encounter Time: 11:35 Subjective: no dizziness, weakness - Objective Vital Signs & Weight: Vital Signs (12 hours) Temp Pulse Resp BP BP Pulse Ox 06/10/19 07:53 98.5 F 87 16 121/71 95 06/10/19 03:42 97.6 F 83 16 113/75 97 06/10/19 00:00 97.7 F 77 16 136/78 95 Weight Weight 181 lb I&O: 06/09/19 06/10/19 06/11/19 06:59 06:59 06:59 Intake Total 1252 900 Balance 1252 900 Result Diagrams: 06/06/19 04:23 06/06/19 04:23 Hospitalist ROS - Medication Medications: Active Medications Generic Name Dose Route Start Last Admin Trade Name Freq PRN Reason Stop Dose Admin Aspirin 81 mg 06/05/19 21:00 06/09/19 20:45 Ecotrin PO 81 mg QPM KIAN Administration Atorvastatin Calcium 40 mg 06/08/19 21:00 06/09/19 20:45 Lipitor PO 40 mg HS KIAN Administration Buspirone HCl 15 mg 06/05/19 21:00 06/10/19 08:42 Buspar PO 15 mg BID KIAN Administration Diphenhydramine HCl 25 mg 06/05/19 15:32 06/05/19 21:20 Benadryl PO 25 mg Q6H PRN Administration Itching & Insomnia Donepezil HCl 5 mg 06/05/19 21:00 06/09/19 20:46 Aricept PO 5 mg HS KIAN Administration Famotidine 20 mg 06/05/19 21:00 06/10/19 08:43 Pepcid PO 20 mg BID KIAN Administration Fluoxetine HCl 50 mg 06/06/19 09:00 06/10/19 08:44 Prozac PO 50 mg QAM KIAN Administration Fluticasone Propionate 0 gm 06/06/19 09:00 06/10/19 08:41 Flonase Nasal [place] NASAL 1 spr DAILY KIAN Administration Loratadine 10 mg 06/06/19 09:00 06/10/19 08:43 Claritin PO 10 mg QAM KIAN Administration Melatonin 3 mg 06/05/19 15:32 06/09/19 20:45 Melatonin PO 3 mg HSPRN PRN Administration Insomnia Multivitamins 1 tab 06/06/19 09:00 06/10/19 08:43 Theragran PO 1 tab DAILY KIAN Administration Ondansetron HCl 4 mg 06/05/19 15:28 06/08/19 22:52 Zofran IVP 4 mg Q6H PRN Administration Nausea/Vomiting Quetiapine Fumarate 12.5 mg 06/05/19 21:00 06/09/19 20:45 Seroquel PO 12.5 mg QPM KIAN Administration - Exam Neck: no JVD Heart: irregular Respiratory: CTAB Gastrointestinal: soft, normal bowel sounds Extremities: no edema Hosp A/P (1) Sinus arrest Code(s): I45.5 - OTHER SPECIFIED HEART BLOCK Status: Acute (2) TIA (transient ischemic attack) Code(s): G45.9 - TRANSIENT CEREBRAL ISCHEMIC ATTACK, UNSPECIFIED Status: Acute (3) Afib Code(s): I48.91 - UNSPECIFIED ATRIAL FIBRILLATION Status: Chronic Qualifiers: Atrial fibrillation type: permanent Qualified Code(s): I48.21 - Permanent atrial fibrillation (4) HLD (hyperlipidemia) Code(s): E78.5 - HYPERLIPIDEMIA, UNSPECIFIED Status: Chronic Qualifiers: Hyperlipidemia type: unspecified Qualified Code(s): E78.5 - Hyperlipidemia , unspecified (5) HTN (hypertension) Code(s): I10 - ESSENTIAL (PRIMARY) HYPERTENSION Status: Chronic Qualifiers: Hypertension type: essential hypertension Qualified Code(s): I10 - Essential (primary) hypertension - Plan off warfarin consult With EP for pacemaker pending
--- NOTE | 2019-06-10 18:34 | PDOC.CPN ---
- Subjective Date: 06/10/19 Time: 18:31 Interval history: She is doing well. Awaiting biV pacer placement. - Review of Systems General: denies: fever/chills, weight/appetite/sleep changes, night sweats, fatigue Respiratory: denies: cough, congestion, shortness of breath, exercise intolerance Cardiovascular: denies: chest pain, palpitation, edema, paroxysmal nocturnal dyspnea, orthopnea Gastrointestinal: denies: nausea, vomiting, diarrhea, constipation, abd pain, GI bleeding Musculoskeletal: denies: pain, tenderness, stiffness, swelling, arthritis/ arthralgias Neurological: denies: numbness, syncope, seizure, weakness - Objective Allergies/Adverse Reactions: Allergies Allergy/AdvReac Type Severity Reaction Status Date / Time No Known Allergies Allergy Unverified 06/05/19 17:27 Visit Medications: Current Medications Acetaminophen (Tylenol) 650 mg PO Q4H PRN PRN Reason: Headache/Fever/Mild Pain (1-3) Hydrocodone Bitart/Acetaminophen ([place] 5/325) 1 tab PO Q4H PRN PRN Reason: Moderate Pain (4-6) Hydrocodone Bitart/Acetaminophen ([place] 7.5/325) 1 tab PO Q4H PRN PRN Reason: Severe Pain (7-10) Albuterol/Ipratropium (Duoneb) 3 ml NEB Q4H PRN PRN Reason: SOB &/or Wheezing Aspirin (Ecotrin) 81 mg PO QPM [facility] Last Admin: 06/09/19 20:45 Dose: 81 mg Atorvastatin Calcium (Lipitor) 40 mg PO HS [facility] Last Admin: 06/09/19 20:45 Dose: 40 mg Benzonatate (Tessalon) 100 mg PO Q4H PRN PRN Reason: Cough Bisacodyl (Dulcolax) 10 mg PO DAILYPRN PRN PRN Reason: Constipation Buspirone HCl (Buspar) 15 mg PO BID [facility] Last Admin: 06/10/19 08:42 Dose: 15 mg Diphenhydramine HCl (Benadryl) 25 mg PO Q6H PRN PRN Reason: Itching & Insomnia Last Admin: 06/05/19 21:20 Dose: 25 mg Docusate Sodium (Colace) 100 mg PO BIDPRN PRN PRN Reason: Constipation Donepezil HCl (Aricept) 5 mg PO [facility] Last Admin: 06/09/19 20:46 Dose: 5 mg Famotidine (Pepcid) 20 mg PO BID [facility] Last Admin: 06/10/19 08:43 Dose: 20 mg Fluoxetine HCl (Prozac) 50 mg PO QAM [facility] Last Admin: 06/10/19 08:44 Dose: 50 mg Fluticasone Propionate (Flonase Nasal [place]) 0 gm NASAL DAILY [facility] Last Admin: 06/10/19 08:41 Dose: 1 spr Labetalol HCl (Normodyne) 10 mg SLOW IVP Q4H PRN PRN Reason: SBP Greater Than 180 Loratadine (Claritin) 10 mg PO QAM [facility] Last Admin: 06/10/19 08:43 Dose: 10 mg Melatonin (Melatonin) 3 mg PO HSPRN PRN PRN Reason: Insomnia Last Admin: 06/09/19 20:45 Dose: 3 mg Multivitamins (Theragran) 1 tab PO DAILY [facility] Last Admin: 06/10/19 08:43 Dose: 1 tab Ondansetron HCl (Zofran Odt) 4 mg PO Q6H PRN PRN Reason: Nausea/Vomiting Ondansetron HCl (Zofran) 4 mg IVP Q6H PRN PRN Reason: Nausea/Vomiting Last Admin: 06/08/19 22:52 Dose: 4 mg Quetiapine Fumarate (Seroquel) 12.5 mg PO QPM [facility] Last Admin: 06/09/19 20:45 Dose: 12.5 mg Senna/Docusate Sodium (Senokot S) 2 tab PO BIDPRN PRN PRN Reason: Constipation Vital Signs & Weight: Vital Signs Temp Pulse Resp BP BP Pulse Ox 06/10/19 15:42 98.7 F 90 15 109/69 94 L 06/10/19 11:34 98.3 F 91 16 122/66 98 06/10/19 07:53 98.5 F 87 16 121/71 95 Weight 181 lb - Physical Exam General: alert & oriented x3, no apparent distress HEENT: mucus membranes moist, normocephaly Neck: supple neck, midline trachea Cardiac: no murmur, irregularly regular Lungs: clear to auscultation, no wheeze, rales, rhonchi Neuro: grossly intact Abdomen: active bowel sounds, soft, non-tender Extremities: no edema Skin: clear Musculoskeletal: no pain - Labs Result Diagrams: 06/06/19 04:23 06/06/19 04:23 Troponin/CKMB Troponin I Less than 0.010 ng/mL (< 0.028) 06/05/19 11:48 - Telemetry Supraventricular conduction: atrial fibrillation - Assessment/Plan Assessment/Plan: 1. TIA 2. Subtherapeutic INR 3. Chronic afib. 4. Syncope with documented 15 second asystole. 5. mild LV dysfunction EF at 40-45% PLAN: - BiV Pacer tomorrow. - She has failed coumadin as she was subtherapeutic and suffered a TIA due to this. Will plan on switching to Eliquis however this may not be affordable for her. If this is the case she will be a candidate for a watchman or Lariat device.
[2019-06-10] MEDS: Aspirin 81 mg Enteric Coated Tablet PO SCH (23:02)
[2019-06-10] MEDS: Donepezil HCl 5 MG TAB PO SCH (23:02)
[2019-06-10] MEDS: Melatonin 3 MG TAB PO PRN (23:02)
[2019-06-10] MEDS: Atorvastatin Calcium 40 MG TAB PO SCH (23:02)
[2019-06-11 05:51] LABS: INR-International Normal Ratio 1.2; Prothrombin Time 15.2 SEC (12.0-14.7)
--- NOTE | 2019-06-11 07:48 | PDOC.HOSPP ---
- Subjective Encounter Date: 06/11/19 Encounter Time: 07:46 Subjective: alert, no dizzziness, focal weakness - Objective Vital Signs & Weight: Vital Signs (12 hours) Temp Pulse Resp BP BP Pulse Ox 06/11/19 03:34 97.7 F 86 16 114/62 97 06/10/19 23:25 97.9 F 83 16 111/74 96 06/10/19 20:00 97 06/10/19 19:48 98.8 F 103 H 16 123/70 97 Weight Weight 181 lb I&O: 06/10/19 06/11/19 06/12/19 06:59 06:59 06:59 Intake Total 900 780 Balance 900 780 Result Diagrams: 06/06/19 04:23 06/06/19 04:23 Hospitalist ROS - Medication Medications: Active Medications Generic Name Dose Route Start Last Admin Trade Name Freq PRN Reason Stop Dose Admin Aspirin 81 mg 06/05/19 21:00 06/10/19 23:02 Ecotrin PO 81 mg QPM KIAN Administration Atorvastatin Calcium 40 mg 06/08/19 21:00 06/10/19 23:02 Lipitor PO 40 mg HS KIAN Administration Buspirone HCl 15 mg 06/05/19 21:00 06/10/19 23:02 Buspar PO 15 mg BID KIAN Administration Diphenhydramine HCl 25 mg 06/05/19 15:32 06/05/19 21:20 Benadryl PO 25 mg Q6H PRN Administration Itching & Insomnia Donepezil HCl 5 mg 06/05/19 21:00 06/10/19 23:02 Aricept PO 5 mg HS KIAN Administration Famotidine 20 mg 06/05/19 21:00 06/10/19 23:02 Pepcid PO 20 mg BID KIAN Administration Fluoxetine HCl 50 mg 06/06/19 09:00 06/10/19 08:44 Prozac PO 50 mg QAM KIAN Administration Fluticasone Propionate 0 gm 06/06/19 09:00 06/10/19 08:41 Flonase Nasal [place] NASAL 1 spr DAILY KIAN Administration Loratadine 10 mg 06/06/19 09:00 06/10/19 08:43 Claritin PO 10 mg QAM KIAN Administration Melatonin 3 mg 06/05/19 15:32 06/10/19 23:02 Melatonin PO 3 mg HSPRN PRN Administration Insomnia Multivitamins 1 tab 06/06/19 09:00 06/10/19 08:43 Theragran PO 1 tab DAILY KIAN Administration Ondansetron HCl 4 mg 06/05/19 15:28 06/08/19 22:52 Zofran IVP 4 mg Q6H PRN Administration Nausea/Vomiting Quetiapine Fumarate 12.5 mg 06/05/19 21:00 06/10/19 23:02 Seroquel PO 12.5 mg QPM KIAN Administration - Exam General Appearance: awake alert Neck: no JVD Heart: no murmur, irregular Respiratory: CTAB Gastrointestinal: soft, normal bowel sounds Extremities: no edema Neurological: no focal deficits Hosp A/P (1) Sinus arrest Code(s): I45.5 - OTHER SPECIFIED HEART BLOCK Status: Acute (2) TIA (transient ischemic attack) Code(s): G45.9 - TRANSIENT CEREBRAL ISCHEMIC ATTACK, UNSPECIFIED Status: Acute (3) Afib Code(s): I48.91 - UNSPECIFIED ATRIAL FIBRILLATION Status: Chronic Qualifiers: Atrial fibrillation type: permanent Qualified Code(s): I48.21 - Permanent atrial fibrillation (4) HLD (hyperlipidemia) Code(s): E78.5 - HYPERLIPIDEMIA, UNSPECIFIED Status: Chronic Qualifiers: Hyperlipidemia type: unspecified Qualified Code(s): E78.5 - Hyperlipidemia , unspecified (5) HTN (hypertension) Code(s): I10 - ESSENTIAL (PRIMARY) HYPERTENSION Status: Chronic Qualifiers: Hypertension type: essential hypertension Qualified Code(s): I10 - Essential (primary) hypertension - Plan BiV pacer today, heather Ortega most likely will discuss with card
[2019-06-11 09:22] LABS: #Basophils 0.1 thou/uL (0.0-0.2); #Lymphocytes 1.5 thou/uL (1.20-3.40); #Monocytes 0.6 thou/uL (0.11-0.59); #Neutrophils 2.4 thou/uL (1.40-6.50); %Basophils 1.2 % (0.0-1.0); %Eosinophils 0.8 % (0.0-10.0); %Lymphocytes 33.1 % (21.0-51.0); %Monocytes 12.4 % (0.0-10.0); %Neutrophils 52.4 % (42.0-75.0); Hemoglobin 12.9 g/dL (12.0-16.0); Mean Corpuscular HGB CONC 34.3 g/dL (32.0-36.0); Mean Corpuscular Hemoglobin 29.5 pg (27.0-31.0); Mean Corpuscular Volume 86.1 fL (78.0-98.0); Mean Platelet Volume 7.1 fL (7.4-10.4); Platelet Count 284 thou/uL (130-400); RBC Distribution Width 11.3 % (11.5-14.5); Red Blood Cell (RBC) Count 4.36 mill/uL (4.20-5.40); White Blood Cell (WBC) Count 4.5 thou/uL (4.8-10.8)
[2019-06-11 09:47] LABS: Anion Gap 12 mmol/L (10-20); BUN (Urea Nitrogen) 15 mg/dL (9.8-20.1); Calc. Creatinine Clearance 73 mL/min (70-130); Calcium 9.4 mg/dL (7.8-10.44); Carbon Dioxide 27 mmol/L (23-31); Chloride 103 mmol/L (98-107); Estimated GFR-MDRD 57; Glucose 88 mg/dL (80-115); Potassium 4.2 mmol/L (3.5-5.1); Sodium 138 mmol/L (136-145)
[2019-06-11] MEDS ORDERED: Midazolam HCl 2 mg/2 ml Vial ONE (10:15)
[2019-06-11] MEDS ORDERED: Fentanyl 100 MCG/2 ML VIAL ONE (10:15)
[2019-06-11] MEDS ORDERED: Lidocaine 1% (PF) 30 ML VIAL ONE (10:15)
[2019-06-11] MEDS ORDERED: Acetaminophen/Codeine 30-300mg Tablet PO PRN ×2 (12:45)
--- NOTE | 2019-06-11 13:04 | RAD ---
Exam: Chest one view HISTORY:Status post pacemaker placement Comparison: 06/05/2019 FINDINGS: Pacemaker: Left-sided transvenous pacemaker with lead positioned over the region of the right ventric le and coronary sinus Cardiac silhouette: Normal Aorta: Unremarkable Pulmonary vessels: Normal Costophrenic angles: Clear LUNGS: No masses or consolidation. Pneumothorax: None Osseous abnormalities: None IMPRESSION: No acute cardiopulmonary process. Transvenous pacemaker placement. Lead position of the r egion right ventricle and coronary sinus. No pneumothorax.
[2019-06-11] MEDS: Fluticasone Propionate Nasal Spray 16 gm Bottle NASAL SCH (13:44)
[2019-06-11] MEDS: busPIRone HCl 10 MG TAB PO SCH ×2 (13:44→20:39)
[2019-06-11] MEDS: FLUoxetine HCl 10 MG CAP PO SCH (13:44)
[2019-06-11] MEDS: Famotidine 20 MG TAB PO SCH ×2 (13:44→20:40)
[2019-06-11] MEDS: Multivit, Therapeutic 1 TAB PO SCH (13:45)
[2019-06-11] MEDS: Loratadine 10 MG TAB PO SCH (13:45)
--- NOTE | 2019-06-11 13:49 | CON ---
DATE OF CONSULTATION: 06/10/2019 I am seeing Ms. 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 Her problems are; 1. Recurrent syncopal spells. a. Likely symptomatic bradycardia with marked high-grade AV block causing ventricular standstill up to approximately 15 seconds noted on telemetry. 2. Admission with TIA-like symptoms. Left arm weakness, now resolved. 3. Mild LV dysfunction according to echocardiogram at 40% to 45%. a. Prior Lexiscan from 11/17/2017 revealed normal LVEF. No ischemia. 4. History of chronic atrial fibrillation with prior failed cardioversions, on Coumadin therapy. 5. 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 6. Hypertension. 7. Hyperlipidemia. ALLERGIES: NONE. MEDICATIONS: At home included; 1. Aspirin. 2. Bisoprolol. 3. Buspirone. 4. Aricept. 5. Claritin. 6. Memantine. 7. Multivitamin. 8. KCl. 9. Pravastatin. 10. Ranitidine. 11. Warfarin. Bisoprolol was only 2.5 mg daily, on hold now. SUBJECTIVE: Ms. Diamond was admitted with left arm weakness symptoms. She has been evaluated for neurologically and diagnosed to have a TIA. While on telemetry, she developed a marked 15-second pause in the absence of AV clau blocking agents. She has no further neurological deficits at this time. The episode of pause was associated with near syncopal spell. This episode was similar to her prior symptom about 2 weeks ago. Although, her history is weak, has had some mild memory deficits. She has no current symptoms of heart failure. No PND or orthopnea. No stroke-like symptoms. No neurological deficits. Occasional rapid heartbeats are noted on telemetry strips. The rest of 12-point system otherwise unremarkable. PAST HISTORY: As above. Also GERD and osteoarthritis noted. SOCIAL HISTORY: The patient denies smoking, EtOH, or drug abuse. 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 FAMILY HISTORY: Noncontributory. OBJECTIVE DATA: VITAL SIGNS: Blood pressure is 122/66, heart rate 91, respiratory rate 16, and temperature 98.3 degrees Fahrenheit. GENERAL: Alert and oriented woman, in no apparent distress. NECK: Supple. Jugular veins not distended. CHEST: Coarse without crackles. CARDIAC: Heart sounds are irregularly irregular. S1 and S2 are variable. No murmur or gallop. ABDOMEN: Benign. Bowel sounds positive. EXTREMITIES: Lower extremity; no edema, clubbing, or cyanosis. Pulses are adequate. NEUROLOGIC: The patient is nonfocal. The patient is alert and oriented x2 only. MUSCULOSKELETAL: No joint swelling or deformity. SKIN: Without rash. DATABASE: The EKG is reviewed revealing atrial fibrillation, rate of 81 beats per minute, narrow QRS at 78 milliseconds, QTc at 432 milliseconds. Subsequent telemetry strips reveal atrial fibrillation with marked pause on 06/07/2019 at 7:25 a.m. for 10 seconds with junctional escape beats, is noted to have atrial fibrillation throughout. Another episode of 10 seconds of ventricular standstill at 06/07/2019 at 10:19 a.m. Atrial fibrillation with rapid rates in the 160s noted at 06/09 at 8:00 p.m. LABORATORY DATA: White count is 5.2, hemoglobin 12.5, and platelet count is 249 on the th. Sodium 139, potassium 4.2, BUN is 17, and creatinine is 1.01. Troponin levels on admission 0.01. The TSH is 1.18. Brain MRI from 06/05/2019 shows small vessel disease and several volume loss, but no evidence of acute infarction. ASSESSMENT AND PLAN: Ms. Diamond is a very pleasant 68-year-old woman with prior history of orthostasis and chronic atrial fibrillation. She had a heart catheterization back in 2018 revealing normal left ventricular ejection fraction and no significant occlusive disease. She had prior history of syncope, which was thought to be orthostatic now recurrent, an episode 2 weeks ago noted and also on admission and recurred in the hospital with associated extreme bradycardia and pauses. 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 Hence, her left ventricular ejection fraction is mildly decreased on the current echocardiogram, BiV pacing is warranted. Risks and benefits of procedure were discussed with her and her family is also aware, they understand, willing to proceed the concerning risk of infection, bleeding, tamponade, pneumothorax, lead dislodgement, and pacemaker functions. She will likely need to resume her anticoagulation regimen after this procedure is completed. Job ID: [id number]
[2019-06-11] MEDS: Cephalexin 250 MG CAP PO SCH ×3 (14:16→20:38)
[2019-06-11] MEDS: diphenhydrAMINE 25 MG CAP PO PRN (14:24)
--- NOTE | 2019-06-11 16:13 | PDOC.EVN ---
Event Note - Event Note Event Note: post pacemaker- doing well
--- NOTE | 2019-06-11 18:26 | PDOC.CPN ---
- Subjective Date: 06/11/19 Time: 18:24 Interval history: She is doing well. Her daughter called the pharmacy and it will be too expensive to do Eliquis. She had her BiV PPM placed this morning and did well. - Review of Systems General: denies: fever/chills, weight/appetite/sleep changes, night sweats, fatigue Respiratory: denies: cough, congestion, shortness of breath, exercise intolerance Cardiovascular: denies: chest pain, palpitation, edema, paroxysmal nocturnal dyspnea, orthopnea Gastrointestinal: denies: nausea, vomiting, diarrhea, constipation, abd pain, GI bleeding Musculoskeletal: denies: pain, tenderness, stiffness, swelling, arthritis/ arthralgias Neurological: denies: numbness, syncope, seizure, weakness - Objective Allergies/Adverse Reactions: Allergies Allergy/AdvReac Type Severity Reaction Status Date / Time No Known Allergies Allergy Unverified 06/05/19 17:27 Visit Medications: Current Medications Acetaminophen (Tylenol) 650 mg PO Q4H PRN PRN Reason: Headache/Fever/Mild Pain (1-3) Acetaminophen/Codeine Phosphate (Tylenol #3) 1 tab PO Q4H PRN PRN Reason: Mild Pain (1-3) Acetaminophen/Codeine Phosphate (Tylenol #3) 2 tab PO Q4H PRN PRN Reason: Moderate Pain (4-6) Last Admin: 06/11/19 14:17 Dose: 2 tab Hydrocodone Bitart/Acetaminophen ([place] 5/325) 1 tab PO Q4H PRN PRN Reason: Moderate Pain (4-6) Hydrocodone Bitart/Acetaminophen ([place] 7.5/325) 1 tab PO Q4H PRN PRN Reason: Severe Pain (7-10) Albuterol/Ipratropium (Duoneb) 3 ml NEB Q4H PRN PRN Reason: SOB &/or Wheezing Aspirin (Ecotrin) 81 mg PO QPM [facility] Last Admin: 06/10/19 23:02 Dose: 81 mg Atorvastatin Calcium (Lipitor) 40 mg PO HS [facility] Last Admin: 06/10/19 23:02 Dose: 40 mg Benzonatate (Tessalon) 100 mg PO Q4H PRN PRN Reason: Cough Bisacodyl (Dulcolax) 10 mg PO DAILYPRN PRN PRN Reason: Constipation Buspirone HCl (Buspar) 15 mg PO BID [facility] Last Admin: 06/11/19 13:44 Dose: Not Given Cephalexin (Keflex) 500 mg PO QID [facility] Stop: 06/18/19 09:01 Last Admin: 06/11/19 17:27 Dose: 500 mg Diphenhydramine HCl (Benadryl) 25 mg PO Q6H PRN PRN Reason: Itching & Insomnia Last Admin: 06/11/19 14:24 Dose: 25 mg Docusate Sodium (Colace) 100 mg PO BIDPRN PRN PRN Reason: Constipation Donepezil HCl (Aricept) 5 mg PO HS [facility] Last Admin: 06/10/19 23:02 Dose: 5 mg Famotidine (Pepcid) 20 mg PO BID [facility] Last Admin: 06/11/19 13:44 Dose: Not Given Fluoxetine HCl (Prozac) 50 mg PO QAM [facility] Last Admin: 06/11/19 13:44 Dose: Not Given Fluticasone Propionate (Flonase Nasal [place]) 0 gm NASAL DAILY [facility] Last Admin: 06/11/19 13:44 Dose: Not Given Labetalol HCl (Normodyne) 10 mg SLOW IVP Q4H PRN PRN Reason: SBP Greater Than 180 Loratadine (Claritin) 10 mg PO QAM [facility] Last Admin: 06/11/19 13:45 Dose: Not Given Melatonin (Melatonin) 3 mg PO HSPRN PRN PRN Reason: Insomnia Last Admin: 06/10/19 23:02 Dose: 3 mg Multivitamins (Theragran) 1 tab PO DAILY [facility] Last Admin: 06/11/19 13:45 Dose: Not Given Ondansetron HCl (Zofran Odt) 4 mg PO Q6H PRN PRN Reason: Nausea/Vomiting Ondansetron HCl (Zofran) 4 mg IVP Q6H PRN PRN Reason: Nausea/Vomiting Last Admin: 06/08/19 22:52 Dose: 4 mg Quetiapine Fumarate (Seroquel) 12.5 mg PO QPM [facility] Last Admin: 06/10/19 23:02 Dose: 12.5 mg Senna/Docusate Sodium (Senokot S) 2 tab PO BIDPRN PRN PRN Reason: Constipation Vital Signs & Weight: Vital Signs Temp Pulse Resp BP Pulse Ox 06/11/19 16:07 97.7 F 96 20 113/69 96 06/11/19 12:49 97.7 F 91 13 111/57 L 98 06/11/19 08:09 97.5 F L 96 12 125/70 96 06/11/19 08:00 96 Weight 181 lb - Physical Exam General: alert & oriented x3 HEENT: mucus membranes moist, normocephaly Neck: supple neck Cardiac: regular rate and rhythm, no murmur Lungs: clear to auscultation Neuro: grossly intact Abdomen: active bowel sounds, soft, non-tender Extremities: no cyanosis, no clubbing, no edema Skin: clear Musculoskeletal: no pain - Labs Result Diagrams: 06/11/19 09:07 06/11/19 09:07 Troponin/CKMB Troponin I Less than 0.010 ng/mL (< 0.028) 06/05/19 11:48 - Telemetry Sinus rhythms and dysrhythmias: sinus rhythm - Assessment/Plan Assessment/Plan: 1. TIA 2. Subtherapeutic INR 3. Chronic afib. 4. Syncope with documented 15 second asystole. 5. Mild LV dysfunction EF at 40-45% PLAN: - BiV Pacer in place. - Continue coumadin for now as Eliquis is not affordable. - May discharge ay time from cardiac perspective.
[2019-06-11] MEDS: Aspirin 81 mg Enteric Coated Tablet PO SCH (20:39)
[2019-06-11] MEDS: Atorvastatin Calcium 40 MG TAB PO SCH (20:40)
[2019-06-11] MEDS: Donepezil HCl 5 MG TAB PO SCH (20:40)
[2019-06-11] MEDS ORDERED: Iopamidol 370 76% 50 ML VIAL FS ONE (20:49)
[2019-06-12 04:36] LABS: INR-International Normal Ratio 1.2
[2019-06-12] MEDS: Fluticasone Propionate Nasal Spray 16 gm Bottle NASAL SCH (09:35)
[2019-06-12] MEDS: Loratadine 10 MG TAB PO SCH (09:36)
[2019-06-12] MEDS: FLUoxetine HCl 10 MG CAP PO SCH (09:36)
[2019-06-12] MEDS: Multivit, Therapeutic 1 TAB PO SCH (09:36)
[2019-06-12] MEDS: Cephalexin 250 MG CAP PO SCH ×4 (09:36→21:32)
[2019-06-12] MEDS: Famotidine 20 MG TAB PO SCH ×2 (09:36→21:33)
[2019-06-12] MEDS: busPIRone HCl 10 MG TAB PO SCH ×2 (09:37→21:32)
--- NOTE | 2019-06-12 09:50 | DIS ---
DATE OF ADMISSION: 06/07/2019 DATE OF DISCHARGE: 06/12/2019 Transfer of care. PRIMARY CARE PROVIDER: Dutch Bocanegra MD DISPOSITION: Discharged to home. FINAL DIAGNOSES: Transient ischemic attack, atrial fibrillation, asystole, hypertension, chronic anticoagulation, dyslipidemia, and chronic kidney disease, stage 3. DISCHARGE MEDICATIONS: 1. Coumadin 5 mg p.o. daily at 1700 hours. 2. Escitalopram 20 mg a day. 3. Ranitidine 150 mg a day. 4. Potassium 99 mg a day. 5. Pravastatin has been discontinued. 6. Aspirin 81 mg a day. 7. Aricept 5 mg a day. 8. Memantine 5 mg a day. 9. Bisoprolol 2.5 mg a day. 10. Buspirone 15 mg one-half tablet twice a day. 11. Cephalexin 250 mg 4 times a day. 12. Lipitor 40 mg a day. 13. Aspirin 81 mg a day. ALLERGIES: NO KNOWN DRUG ALLERGIES. DIET: Coumadin. CODE STATUS: Full. PENDING AT THE TIME OF DISCHARGE: Nothing. CONSULTATIONS: 1. Dr. Pedro Rodriguez, Cardiology. 2. Dr. Hank Carreon, Electrophysiology. PROCEDURES: Pacemaker placement, biventricular, on 06/11/2019. [facility] through the emergency department with left-sided weakness. She had a history of atrial fibrillation, on Coumadin anticoagulation. She was placed on the stroke unit. Neurology, Dr. Magnus Mejia, was consulted. Stroke workup was given. The patient was therapeutic on Coumadin. Aspirin was added. Brain CT revealed only chronic small vessel ischemic disease. MRI was unrevealing for an acute stroke. The patient's symptoms resolved. Echocardiogram was done, revealed an EF of 40% to 45%. The patient had a 15-second episode of asystole, Cardiology was consulted. Decision was the patient will be needing a pacemaker. Dr. Hank Carreon, Electrophysiology, was consulted. The patient's pro-time was allowed to decrease from the therapeutic level of an INR 2.1 down to 1.5. The pacemaker was then placed. The patient is unable to afford Eliquis, etc. She is being placed back on Coumadin 5 mg a day. Cardiovascular status is stable. Vital signs are stable. The patient is alert and awake. PERTINENT LABORATORY DATA: Hemoglobin was 14.1, white cell count 5.1, and platelet count 310,000. Comprehensive metabolic profile revealed only a creatinine of 1.16, which dropped to 0.98. The patient is being discharged. She has been asked to see her PCP on 06/16/2019, for PT/INR. She is being put on her usual dose of warfarin, and no rapid changes expected. She has been asked to see Cardiology in followup. Job ID: [id number]
[2019-06-12] MEDS ORDERED: Metoprolol Tartrate 5 MG/5 ML VIAL IVP SCH ×2 (10:15→14:45)
--- NOTE | 2019-06-12 13:20 | PDOC.CPN ---
- Subjective Date: 06/12/19 Time: 13:19 Interval history: EP PROGRESS NOTE: 06/12/19 Follow up after BiV PPM implant on 06/11. Feels well. ambulating through hallway. Minimal pain at PPM implant site. - Review of Systems General: denies: fever/chills, night sweats, fatigue Respiratory: denies: congestion, shortness of breath Cardiovascular: denies: palpitation Gastrointestinal: denies: nausea, vomiting, diarrhea Neurological: denies: syncope, weakness - Objective Allergies/Adverse Reactions: Allergies Allergy/AdvReac Type Severity Reaction Status Date / Time No Known Allergies Allergy Unverified 06/05/19 17:27 Visit Medications: Current Medications Acetaminophen (Tylenol) 650 mg PO Q4H PRN PRN Reason: Headache/Fever/Mild Pain (1-3) Last Admin: 06/11/19 20:40 Dose: 650 mg Acetaminophen/Codeine Phosphate (Tylenol #3) 1 tab PO Q4H PRN PRN Reason: Mild Pain (1-3) Acetaminophen/Codeine Phosphate (Tylenol #3) 2 tab PO Q4H PRN PRN Reason: Moderate Pain (4-6) Last Admin: 06/11/19 14:17 Dose: 2 tab Hydrocodone Bitart/Acetaminophen ([place] 5/325) 1 tab PO Q4H PRN PRN Reason: Moderate Pain (4-6) Hydrocodone Bitart/Acetaminophen ([place] 7.5/325) 1 tab PO Q4H PRN PRN Reason: Severe Pain (7-10) Albuterol/Ipratropium (Duoneb) 3 ml NEB Q4H PRN PRN Reason: SOB &/or Wheezing Aspirin (Ecotrin) 81 mg PO QPM REPLACED BY [facility] Last Admin: 06/11/19 20:39 Dose: 81 mg Atorvastatin Calcium (Lipitor) 40 mg PO HS REPLACED BY [facility] Last Admin: 06/11/19 20:40 Dose: 40 mg Benzonatate (Tessalon) 100 mg PO Q4H PRN PRN Reason: Cough Bisacodyl (Dulcolax) 10 mg PO DAILYPRN PRN PRN Reason: Constipation Buspirone HCl (Buspar) 15 mg PO BID REPLACED BY [facility] Last Admin: 06/12/19 09:37 Dose: 15 mg Cephalexin (Keflex) 500 mg PO QID REPLACED BY [facility] Stop: 06/18/19 09:01 Last Admin: 06/12/19 13:15 Dose: 500 mg Diphenhydramine HCl (Benadryl) 25 mg PO Q6H PRN PRN Reason: Itching & Insomnia Last Admin: 06/11/19 14:24 Dose: 25 mg Docusate Sodium (Colace) 100 mg PO BIDPRN PRN PRN Reason: Constipation Donepezil HCl (Aricept) 5 mg PO HS REPLACED BY [facility] Last Admin: 06/11/19 20:40 Dose: 5 mg Famotidine (Pepcid) 20 mg PO BID REPLACED BY [facility] Last Admin: 06/12/19 09:36 Dose: 20 mg Fluoxetine HCl (Prozac) 50 mg PO QAM REPLACED BY [facility] Last Admin: 06/12/19 09:36 Dose: 50 mg Fluticasone Propionate (Flonase Nasal [place]) 0 gm NASAL DAILY REPLACED BY [facility] Last Admin: 06/12/19 09:35 Dose: 1 spr Labetalol HCl (Normodyne) 10 mg SLOW IVP Q4H PRN PRN Reason: SBP Greater Than 180 Loratadine (Claritin) 10 mg PO QAM REPLACED BY [facility] Last Admin: 06/12/19 09:36 Dose: 10 mg Melatonin (Melatonin) 3 mg PO HSPRN PRN PRN Reason: Insomnia Last Admin: 06/10/19 23:02 Dose: 3 mg Metoprolol Tartrate (Lopressor) 5 mg IVP NOW REPLACED BY [facility] Stop: 06/12/19 14:00 Last Admin: 06/12/19 10:28 Dose: 5 mg Multivitamins (Theragran) 1 tab PO DAILY REPLACED BY [facility] Last Admin: 06/12/19 09:36 Dose: 1 tab Ondansetron HCl (Zofran Odt) 4 mg PO Q6H PRN PRN Reason: Nausea/Vomiting Ondansetron HCl (Zofran) 4 mg IVP Q6H PRN PRN Reason: Nausea/Vomiting Last Admin: 06/08/19 22:52 Dose: 4 mg Quetiapine Fumarate (Seroquel) 12.5 mg PO QPM REPLACED BY [facility] Last Admin: 06/11/19 20:39 Dose: 12.5 mg Senna/Docusate Sodium (Senokot S) 2 tab PO BIDPRN PRN PRN Reason: Constipation Sodium Chloride (Flush - Normal Saline) 10 ml IVF Q12HR REPLACED BY [facility] Last Admin: 06/12/19 09:42 Dose: 10 ml Sodium Chloride (Flush - Normal Saline) 10 ml IVF PRN PRN PRN Reason: Saline Flush Warfarin Sodium (Coumadin) 5 mg PO 1700 REPLACED BY [facility] Vital Signs & Weight: Vital Signs Temp Pulse Resp BP Pulse Ox 06/12/19 11:51 98.6 F 85 18 106/59 L 95 06/12/19 08:00 95 06/12/19 07:35 98.3 F 107 H 16 121/78 95 06/12/19 04:00 97.5 F L 98 16 112/66 99 Weight 179 lb 1.6 oz - CHADS-VASc Hypertension: 1 Age 65-74: 1 Female: 1 Risk Score: 3 - Quality Measures Condition: Atrial Fibrillation/Flutter (hx or current) CV meds: Anticoagulant: Yes (warfarin) - Physical Exam General: no apparent distress, other (alert. short term memory issues.) HEENT: mucus membranes moist Neck: supple neck, midline trachea Cardiac: other (AF RVR) Lungs: clear to auscultation, normal breath sounds Neuro: grossly intact Abdomen: active bowel sounds Skin: other (left PPM incision CDI. Small amount of bloody drainage on dressing. ) - Labs Result Diagrams: 06/11/19 09:07 06/11/19 09:07 Troponin/CKMB Troponin I Less than 0.010 ng/mL (< 0.028) 06/05/19 11:48 - Telemetry Supraventricular conduction: atrial fibrillation (rvr) - Assessment/Plan Assessment/Plan: 1. High grade AV block with 15 second ventricular standstill 2. Recurrent syncope and collapse 3. Dementia 4. Chronic atrial fibrillation - RVR 140-180 this AM and repeatedly while ambulating - Lopressor 5mg IVP given, HR then 90s. Starting rate control 5. Mild LV dysfunction - EF 40-45% 6. Anticoagulation with warfarin - subtherapeutic INR 1.2 - CHADS2-VASC: 3 7. BiV pacemaker - [employer]tronic. No A lead due to chronic AF - CXR post implant is stable. - PPM check stable Stable from PPM perspective. Obvious need for rate control before discharge. INR subtherapeutic. May resume warfarin. Continue keflex x 7 days post implant. Starting dig 125mcg daily and resuming home bisoprolol. If rates stable over HS and while ambulating, could DC tomorrow.
[2019-06-12] MEDS ORDERED: Digoxin 0.125 MG TAB PO SCH (15:45)
[2019-06-12] MEDS ORDERED: Warfarin Sodium 5 MG TAB PO SCH (17:00)
--- NOTE | 2019-06-12 17:11 | PDOC.CPN ---
- Subjective Date: 06/12/19 Time: 17:10 Interval history: Doing well. Afib in the 90's to 140's. Worse with ambulation. - Review of Systems General: denies: fever/chills, weight/appetite/sleep changes, night sweats, fatigue Respiratory: denies: cough, congestion, shortness of breath, exercise intolerance Cardiovascular: denies: chest pain, palpitation, edema, paroxysmal nocturnal dyspnea, orthopnea Gastrointestinal: denies: nausea, vomiting, diarrhea, constipation, abd pain, GI bleeding Musculoskeletal: denies: pain, tenderness, stiffness, swelling, arthritis/ arthralgias Neurological: denies: numbness, syncope, seizure, weakness - Objective Allergies/Adverse Reactions: Allergies Allergy/AdvReac Type Severity Reaction Status Date / Time No Known Allergies Allergy Unverified 06/05/19 17:27 Visit Medications: Current Medications Acetaminophen (Tylenol) 650 mg PO Q4H PRN PRN Reason: Headache/Fever/Mild Pain (1-3) Last Admin: 06/11/19 20:40 Dose: 650 mg Acetaminophen/Codeine Phosphate (Tylenol #3) 1 tab PO Q4H PRN PRN Reason: Mild Pain (1-3) Acetaminophen/Codeine Phosphate (Tylenol #3) 2 tab PO Q4H PRN PRN Reason: Moderate Pain (4-6) Last Admin: 06/11/19 14:17 Dose: 2 tab Hydrocodone Bitart/Acetaminophen ([place] 5/325) 1 tab PO Q4H PRN PRN Reason: Moderate Pain (4-6) Hydrocodone Bitart/Acetaminophen ([place] 7.5/325) 1 tab PO Q4H PRN PRN Reason: Severe Pain (7-10) Albuterol/Ipratropium (Duoneb) 3 ml NEB Q4H PRN PRN Reason: SOB &/or Wheezing Aspirin (Ecotrin) 81 mg PO QPM [facility] Last Admin: 06/11/19 20:39 Dose: 81 mg Atorvastatin Calcium (Lipitor) 40 mg PO HS [facility] Last Admin: 06/11/19 20:40 Dose: 40 mg Benzonatate (Tessalon) 100 mg PO Q4H PRN PRN Reason: Cough Bisacodyl (Dulcolax) 10 mg PO DAILYPRN PRN PRN Reason: Constipation Bisoprolol Fumarate (Zebeta) 2.5 mg PO DAILY [facility] Buspirone HCl (Buspar) 15 mg PO BID [facility] Last Admin: 06/12/19 09:37 Dose: 15 mg Cephalexin (Keflex) 500 mg PO QID [facility] Stop: 06/18/19 09:01 Last Admin: 06/12/19 13:15 Dose: 500 mg Digoxin (Lanoxin) 0.125 mg PO DAILY [facility] Digoxin (Lanoxin) 0.125 mg PO NOW [facility] Stop: 06/12/19 17:45 Diphenhydramine HCl (Benadryl) 25 mg PO Q6H PRN PRN Reason: Itching & Insomnia Last Admin: 06/11/19 14:24 Dose: 25 mg Docusate Sodium (Colace) 100 mg PO BIDPRN PRN PRN Reason: Constipation Donepezil HCl (Aricept) 5 mg PO HS [facility] Last Admin: 06/11/19 20:40 Dose: 5 mg Famotidine (Pepcid) 20 mg PO BID [facility] Last Admin: 06/12/19 09:36 Dose: 20 mg Fluoxetine HCl (Prozac) [facility] [place] Last Admin: 06/12/19 09:36 Dose: 50 mg Fluticasone Propionate (Flonase Nasal [place]) 0 gm NASAL DAILY [facility] Last Admin: 06/12/19 09:35 Dose: 1 spr Labetalol HCl (Normodyne) 10 mg SLOW IVP Q4H PRN PRN Reason: SBP Greater Than 180 Loratadine (Claritin) 10 mg PO QAM [facility] Last Admin: 06/12/19 09:36 Dose: 10 mg Melatonin (Melatonin) 3 mg PO HSPRN PRN PRN Reason: Insomnia Last Admin: 06/10/19 23:02 Dose: 3 mg Multivitamins (Theragran) 1 tab PO DAILY [facility] Last Admin: 06/12/19 09:36 Dose: 1 tab Ondansetron HCl (Zofran Odt) 4 mg PO Q6H PRN PRN Reason: Nausea/Vomiting Ondansetron HCl (Zofran) 4 mg IVP Q6H PRN PRN Reason: Nausea/Vomiting Last Admin: 06/08/19 22:52 Dose: 4 mg Quetiapine Fumarate (Seroquel) 12.5 mg PO QPM [facility] Last Admin: 06/11/19 20:39 Dose: 12.5 mg Senna/Docusate Sodium (Senokot S) 2 tab PO BIDPRN PRN PRN Reason: Constipation Sodium Chloride (Flush - Normal Saline) 10 ml IVF Q12HR [facility] Last Admin: 06/12/19 09:42 Dose: 10 ml Sodium Chloride (Flush - Normal Saline) 10 ml IVF PRN PRN PRN Reason: Saline Flush Warfarin Sodium (Coumadin) 5 mg PO 1700 [facility] Vital Signs & Weight: Vital Signs Temp Pulse Resp BP Pulse Ox 06/12/19 16:00 97.8 F 107 H 16 110/71 98 06/12/19 11:51 98.6 F 85 18 106/59 L 95 06/12/19 08:00 95 06/12/19 07:35 98.3 F 107 H 16 121/78 95 Weight 179 lb 1.6 oz - Quality Measures Condition: Atrial Fibrillation/Flutter (hx or current) CV meds: Anticoagulant: Yes (warfarin) - Physical Exam General: alert & oriented x3 HEENT: mucus membranes moist Neck: supple neck Cardiac: irregularly regular Lungs: clear to auscultation Neuro: grossly intact Abdomen: active bowel sounds, soft, non-tender Extremities: no edema Skin: clear Musculoskeletal: no pain - Labs Result Diagrams: 06/11/19 09:07 06/11/19 09:07 Troponin/CKMB Troponin I Less than 0.010 ng/mL (< 0.028) 06/05/19 11:48 - Telemetry Supraventricular conduction: atrial fibrillation - Assessment/Plan Assessment/Plan: 1. TIA 2. Subtherapeutic INR 3. Chronic afib. 4. Syncope s/p BiV PPM. 5. Mild LV dysfunction EF at 40-45% PLAN: - BiV Pacer in place. - Continue coumadin for now as Eliquis is not affordable. - Rate control for her afib. restart home regimen.
[2019-06-12] MEDS: Atorvastatin Calcium 40 MG TAB PO SCH (21:33)
[2019-06-12] MEDS: Donepezil HCl 5 MG TAB PO SCH (21:33)
[2019-06-12] MEDS: Aspirin 81 mg Enteric Coated Tablet PO SCH (21:33)
[2019-06-12] MEDS: diphenhydrAMINE 25 MG CAP PO PRN (21:34)
[2019-06-13 06:40] LABS: INR-International Normal Ratio 1.1; Prothrombin Time 14.1 SEC (12.0-14.7)
[2019-06-13] MEDS ORDERED: Digoxin 0.125 MG TAB PO SCH (09:00)
[2019-06-13] MEDS ORDERED: Bisoprolol Fumarate 5 MG TAB PO SCH (09:00)
[2019-06-13] MEDS: Fluticasone Propionate Nasal Spray 16 gm Bottle NASAL SCH (09:32)
[2019-06-13] MEDS: Cephalexin 250 MG CAP PO SCH ×2 (09:33→15:56)
[2019-06-13] MEDS: busPIRone HCl 10 MG TAB PO SCH (09:34)
[2019-06-13] MEDS: Multivit, Therapeutic 1 TAB PO SCH (09:35)
[2019-06-13] MEDS: FLUoxetine HCl 10 MG CAP PO SCH (09:35)
[2019-06-13] MEDS: Loratadine 10 MG TAB PO SCH (09:35)
[2019-06-13] MEDS: Famotidine 20 MG TAB PO SCH (09:35)
--- NOTE | 2019-06-13 10:21 | PDOC.CPN ---
- Subjective Date: 06/13/19 Time: 08:00 Interval history: EP PROGRESS NOTE: 06/13/19 Follow up after BiV PPM implant on 06/11. Feels well. ambulating through hallway. Minimal pain at PPM implant site.Eager to go home - Review of Systems General: denies: fever/chills, weight/appetite/sleep changes, night sweats, fatigue Respiratory: denies: cough, congestion, shortness of breath, exercise intolerance Cardiovascular: denies: chest pain, palpitation, edema, paroxysmal nocturnal dyspnea, orthopnea Gastrointestinal: denies: nausea, vomiting, diarrhea, constipation, abd pain, GI bleeding Musculoskeletal: denies: pain, tenderness, stiffness, swelling, arthritis/ arthralgias Neurological: denies: numbness, syncope, seizure, weakness - Objective Allergies/Adverse Reactions: Allergies Allergy/AdvReac Type Severity Reaction Status Date / Time No Known Allergies Allergy Unverified 06/05/19 17:27 Visit Medications: Current Medications Acetaminophen (Tylenol) 650 mg PO Q4H PRN PRN Reason: Headache/Fever/Mild Pain (1-3) Last Admin: 06/11/19 20:40 Dose: 650 mg Acetaminophen/Codeine Phosphate (Tylenol #3) 1 tab PO Q4H PRN PRN Reason: Mild Pain (1-3) Acetaminophen/Codeine Phosphate (Tylenol #3) 2 tab PO Q4H PRN PRN Reason: Moderate Pain (4-6) Last Admin: 06/11/19 14:17 Dose: 2 tab Hydrocodone Bitart/Acetaminophen ([place] 5/325) 1 tab PO Q4H PRN PRN Reason: Moderate Pain (4-6) Hydrocodone Bitart/Acetaminophen ([place] 7.5/325) 1 tab PO Q4H PRN PRN Reason: Severe Pain (7-10) Albuterol/Ipratropium (Duoneb) 3 ml NEB Q4H PRN PRN Reason: SOB &/or Wheezing Aspirin (Ecotrin) 81 mg PO QPM [facility] Last Admin: 06/12/19 21:33 Dose: 81 mg Atorvastatin Calcium (Lipitor) 40 mg PO HS [facility] Last Admin: 06/12/19 21:33 Dose: 40 mg Benzonatate (Tessalon) 100 mg PO Q4H PRN PRN Reason: Cough Bisacodyl (Dulcolax) 10 mg PO DAILYPRN PRN PRN Reason: Constipation Bisoprolol Fumarate (Zebeta) 2.5 mg PO DAILY [facility] Last Admin: 06/13/19 09:34 Dose: 2.5 mg Buspirone HCl (Buspar) 15 mg PO BID [facility] Last Admin: 06/13/19 09:34 Dose: 15 mg Cephalexin (Keflex) 500 mg PO QID [facility] Stop: 06/18/19 09:01 Last Admin: 06/13/19 09:33 Dose: 500 mg Digoxin (Lanoxin) 0.125 mg PO DAILY [facility] Last Admin: 06/13/19 09:33 Dose: 0.125 mg Diphenhydramine HCl (Benadryl) 25 mg PO Q6H PRN PRN Reason: Itching & Insomnia Last Admin: 06/12/19 21:34 Dose: 25 mg Docusate Sodium (Colace) 100 mg PO BIDPRN PRN PRN Reason: Constipation Donepezil HCl (Aricept) 5 mg PO HS [facility] Last Admin: 06/12/19 21:33 Dose: 5 mg Famotidine (Pepcid) 20 mg PO BID [facility] Last Admin: 06/13/19 09:35 Dose: 20 mg Fluoxetine HCl (Prozac) 50 [facility] [place] Last Admin: 06/13/19 09:35 Dose: 50 mg Fluticasone Propionate (Flonase Nasal [place]) 0 gm NASAL DAILY [facility] Last Admin: 06/13/19 09:32 Dose: 1 spr Labetalol HCl (Normodyne) 10 mg SLOW IVP Q4H PRN PRN Reason: SBP Greater Than 180 Loratadine (Claritin) 10 mg PO QAM [facility] Last Admin: 06/13/19 09:35 Dose: 10 mg Melatonin (Melatonin) 3 mg PO HSPRN PRN PRN Reason: Insomnia Last Admin: 06/10/19 23:02 Dose: 3 mg Multivitamins (Theragran) 1 tab PO DAILY [facility] Last Admin: 06/13/19 09:35 Dose: 1 tab Ondansetron HCl (Zofran Odt) 4 mg PO Q6H PRN PRN Reason: Nausea/Vomiting Ondansetron HCl (Zofran) 4 mg IVP Q6H PRN PRN Reason: Nausea/Vomiting Last Admin: 06/08/19 22:52 Dose: 4 mg Quetiapine Fumarate (Seroquel) 12.5 mg PO QPM [facility] Last Admin: 06/12/19 21:32 Dose: 12.5 mg Senna/Docusate Sodium (Senokot S) 2 tab PO BIDPRN PRN PRN Reason: Constipation Sodium Chloride (Flush - Normal Saline) 10 ml IVF Q12HR [facility] Last Admin: 06/13/19 09:41 Dose: 10 ml Sodium Chloride (Flush - Normal Saline) 10 ml IVF PRN PRN PRN Reason: Saline Flush Warfarin Sodium (Coumadin) 5 mg PO 1700 [facility] Last Admin: 06/12/19 17:58 Dose: 5 mg Vital Signs & Weight: Vital Signs Temp Pulse Resp BP Pulse Ox 06/13/19 09:33 90 06/13/19 07:54 98.4 F 90 16 113/64 95 06/13/19 03:53 98.3 F 110 H 14 102/62 98 06/12/19 23:36 98.5 F 90 15 111/71 98 Weight 180 lb 3.2 oz - Quality Measures Condition: Atrial Fibrillation/Flutter (hx or current) CV meds: Anticoagulant: Yes (warfarin) - Physical Exam General: appears well, no apparent distress HEENT: mucus membranes moist Neck: supple neck, midline trachea Cardiac: regular rate and rhythm, no murmur Lungs: clear to auscultation, normal breath sounds Neuro: grossly intact Skin: other (PPM incision CDI. no drainage. minimal swelling and bruising) - Labs Result Diagrams: 06/11/19 09:07 06/11/19 09:07 Troponin/CKMB Troponin I Less than 0.010 ng/mL (< 0.028) 06/05/19 11:48 - Assessment/Plan Assessment/Plan: 1. High grade AV block with 15 second ventricular standstill 2. Recurrent syncope and collapse 3. Dementia 4. Chronic atrial fibrillation - Rate controlled 90s now 5. Mild LV dysfunction - EF 40-45% 6. Anticoagulation with warfarin - subtherapeutic INR 1.1 - CHADS2-VASC: 3 7. BiV pacemaker - [employer]. No A lead due to chronic AF - CXR post implant is stable. - PPM check stable Stable from PPM perspective. INR subtherapeutic. May resume warfarin. Continue keflex x 7 days post implant. Increasing Dig to 250mcg daily. continue bisoprolol. Tele reveiwed. QRS morphology changes, fusion vs loss of LV capture. Device checked again, shows stable function.
[2019-06-13 12:18] VITALS: BP 113/72; TEMP 98.2
--- NOTE | 2019-06-13 13:48 | CON ---
DATE OF CONSULTATION: 06/10/2019 REASON FOR CONSULTATION: Recurrent syncope and collapse, ventricular standstill. HISTORY OF PRESENT ILLNESS: Ms. Diamond is a pleasant 68-year-old woman, admitted with left-sided weakness. She has previously been evaluated for episodes of syncope and is known to have chronic atrial fibrillation with failed cardioversion therapy in the past. She had a heart catheterization approximately a year and a half ago, showing normal left ventricular function and a PET scan that revealed mild ischemia at the apex. Ms. Diamond also has a history of dementia, making her a questionable historian at best, but reports having syncopal episodes approximately 2 weeks ago with some residual left-sided weakness, but this had resolved by the time she reached the hospital. On telemetry, she has been seen to have a 15-second episode of ventricular standstill followed by extreme bradycardia, prompting the electrophysiology consultation. She is quite pleasant and does not have any cardiac concerns or complaints presently, but as mentioned, she is a very poor historian with her dementia and obvious short-term memory loss issues. REVIEW OF SYSTEMS: A 12-point review of systems was conducted to the best of our ability and is negative except that listed above in HPI, but significantly limited due to the patient's underlying dementia and short-term memory loss. PAST MEDICAL HISTORY: 1. Chronic atrial fibrillation. 2. Hypertension. 3. Hyperlipidemia. 4. Alzheimer dementia. 5. Preserved left ventricular ejection fraction by echocardiogram in 11/2017. ALLERGIES: NO KNOWN DRUG ALLERGIES. HOME MEDICATIONS: 1. Aspirin 81 mg daily. 2. Bisoprolol 2.5 mg q.a.m. 3. . 4. Aricept 5 mg nightly. 5. Claritin 10 mg daily. 6. Memantine 5 mg daily. 7. Multivitamin daily. 8. Potassium daily. 9. Pravastatin 80 mg nightly. 10. Ranitidine 150 mg q.p.m. 11. Warfarin 5 mg as directed. SOCIAL HISTORY: Does not smoke, drink, or use illicit drugs. She lives with her daughter. FAMILY HISTORY: Negative for sudden cardiac or early onset coronary artery disease to the best of her and her daughter's recollection. OBJECTIVE: VITAL SIGNS: Temperature 98.3, pulse 91, blood pressure is 122/66, respirations 16, and oxygen is 94% on room air. GENERAL: The patient is alert. She is oriented to person and place, poorly oriented to situation. She is in no apparent distress. NECK: Supple without jugular venous distention. LUNGS: Clear to auscultation. HEART: Irregularly irregular with crisp S1 and S2. No significant murmur, rub, or gallop appreciated. ABDOMEN: Soft and nontender without palpable masses and has positive bowel sounds throughout. EXTREMITIES: Warm and dry to touch without clubbing, cyanosis, or edema. NEUROLOGIC: Grossly intact with normal strength and sensation and nonfocal. Her gait was not assessed. DATABASE: EKG shows atrial fibrillation with controlled ventricular rate. Prior tracings show an episode of ventricular standstill of approximately 15 seconds with a high-grade AV block. Echocardiogram on 06/06/2019 shows an ejection fraction moderately reduced at 40% to 45%. Previously preserved at 50% as mentioned above in 11/2017. IMPRESSION: 1. Recurrent syncope and collapse. 2. Transient ischemic attack. 3. Symptomatic bradycardia with high-grade atrioventricular block and 15-second ventricular standstill. 4. Mild left ventricular dysfunction. Ejection fraction is 40% to 45% by recent echo. 5. Chronic atrial fibrillation. 6. CHADS-VASc score of greater than or equal to 3 on the basis of advancing age, female gender, and hypertension. Oral anticoagulation is indicated. 7. Alzheimer dementia with short-term memory loss. PLAN AND RECOMMENDATIONS: Ms. Diamond is a pleasant 68-year-old woman with obvious short-term memory loss and some mild dementia on that. She has been having recurrent syncopal episodes and is seen to have ventricular standstill with high-grade AV block. We discussed pacemaker implantation. With her chronic atrial fibrillation, we will forego on atrial lead, but agree with a biventricular pacemaker to prevent recurrent syncope from her obvious conduction disease. We discussed the risks, benefits, and alternatives with Ms. Diamond and her daughter. They are in agreement with pacemaker and we will move forward at the earliest convenience. Her INR is subtherapeutic, currently at 1.5. We will hold her warfarin until after the pacemaker is placed, but oral anticoagulation is highly recommended for her. She may also require Lovenox bridge, which we will defer to Internal Medicine for this. Thank you for allowing me to participate in the care of this patient. Job ID: [id number]
[2019-06-14] MEDS ORDERED: Digoxin 0.25 MG TAB PO SCH (09:00)
== END 2019-06-13 16:15 | disposition home or self-care (01) | DRG 243 ==
LOC: ERS 11:39 → 2SE 13:30 → OBSVTOIN 06-07 12:21
PROVIDERS: ADMIT Internal Medicine; ATTEND Internal Medicine
PROC: 0JH607Z Insertion of Cardiac Resynchronization Pacemaker Pulse Generator into Chest Subcutaneous Tissue and Fascia, Open Approach (ICD-10-PCS; principal; 2019-06-11)
PROC: 02HL3JZ Insertion of Pacemaker Lead into Left Ventricle, Percutaneous Approach (ICD-10-PCS; 2019-06-11)
PROC: 02HK3JZ Insertion of Pacemaker Lead into Right Ventricle, Percutaneous Approach (ICD-10-PCS; 2019-06-11)
PROC: B51V1ZZ Fluoroscopy of Other Veins using Low Osmolar Contrast (ICD-10-PCS; 2019-06-11)
DX: I49.5 Sick sinus syndrome (principal); G45.9 Transient cerebral ischemic attack, unspecified; I47.2 Ventricular tachycardia; I48.21 Permanent atrial fibrillation; I45.5 Other specified heart block; E78.5 Hyperlipidemia, unspecified; K21.9 Gastro-esophageal reflux disease without esophagitis; M19.90 Unspecified osteoarthritis, unspecified site; F02.80 Dementia in other diseases classified elsewhere, unspecified severity, without behavioral disturbance, psychotic disturbance, mood disturbance, and anxiety; F41.9 Anxiety disorder, unspecified; I51.89 Other ill-defined heart diseases; G30.0 Alzheimer's disease with early onset; N18.3 Chronic kidney disease, stage 3 (moderate); I12.9 Hypertensive chronic kidney disease with stage 1 through stage 4 chronic kidney disease, or unspecified chronic kidney disease; Z79.01 Long term (current) use of anticoagulants; Z79.899 Other long term (current) drug therapy; Z79.82 Long term (current) use of aspirin
CPT/HCPCS: 33207; 33225; 36005; 36415; 36416; 70450; 70496; 70498; 70551; 71045; 75820; 80048; 80053; 80061; 82550; 84443; 84484; 85025; 85610; 85730; 86850; 86900; 86901; 90471; 90662; 90670; 93005; 93306; 99152; 99153; C1882; C1898; C1900; G0008; G0009; J0690; J1650; J2001; J2250; J2405; J3010; J3490; Q0163; Q9967

== ENCOUNTER 2019-10-02 20:30 | Outpatient (CLI) | payer MEDICARE | END 2019-10-02 20:31 | disposition home or self-care (01) | LOC: SLEEPLAB 20:30 | PROVIDERS: ATTEND Family Medicine | DX: G47.33 Obstructive sleep apnea (adult) (pediatric) (principal); G47.10 Hypersomnia, unspecified; G25.81 Restless legs syndrome; G47.9 Sleep disorder, unspecified; R53.83 Other fatigue; R40.0 Somnolence; R09.89 Other specified symptoms and signs involving the circulatory and respiratory systems; G31.84 Mild cognitive impairment of uncertain or unknown etiology; R51 Headache; G47.69 Other sleep related movement disorders; F41.9 Anxiety disorder, unspecified; F32.9 Major depressive disorder, single episode, unspecified; G47.00 Insomnia, unspecified; I11.0 Hypertensive heart disease with heart failure; I50.9 Heart failure, unspecified | CPT/HCPCS: 95810 ==

== ENCOUNTER 2019-10-21 19:30 | Outpatient (CLI) | payer MEDICARE | END 2019-10-21 19:31 | disposition home or self-care (01) | LOC: SLEEPLAB 19:30 | PROVIDERS: ATTEND Family Medicine | DX: G47.33 Obstructive sleep apnea (adult) (pediatric) (principal); G47.10 Hypersomnia, unspecified; G25.81 Restless legs syndrome; R53.83 Other fatigue; G47.61 Periodic limb movement disorder; R51 Headache; G47.00 Insomnia, unspecified; F41.9 Anxiety disorder, unspecified; I49.9 Cardiac arrhythmia, unspecified; F32.9 Major depressive disorder, single episode, unspecified; I11.0 Hypertensive heart disease with heart failure; I50.9 Heart failure, unspecified; G45.9 Transient cerebral ischemic attack, unspecified; G31.84 Mild cognitive impairment of uncertain or unknown etiology | CPT/HCPCS: 95811 ==

== ENCOUNTER 2020-07-31 14:36 | Outpatient (CLI) | payer MEDICARE ==
--- NOTE | 2020-07-31 15:58 | MMO ---
Bilateral MAMMO Bilat Screen [facility]. CLINICAL HISTORY: Patient is 70 years old and is seen for screening. The patient has no family history of breast cancer. The patient has no personal history of cancer. VIEWS: The views performed were: bilateral craniocaudal with tomosynthesis and bilateral mediolateral oblique with tomosynthesis. FILMS COMPARED: The present examination has been compared to prior imaging studies performed at [facility] on 04/19/2018 and 05/24/2018. This study has been interpreted with the assistance of computer-aided detection. MAMMOGRAM FINDINGS: There are scattered fibroglandular densities. Benign calcifications are noted bilaterally. There are no suspicious masses, suspicious calcifications, or new areas of architectural distortion. IMPRESSION: THERE IS NO MAMMOGRAPHIC EVIDENCE OF MALIGNANCY. A ROUTINE FOLLOW-UP MAMMOGRAM IN 1 YEAR IS RECOMMENDED. THE RESULTS OF THIS EXAM WERE SENT TO THE PATIENT. ACR BI-RADS Category 2 - Benign finding MAMMOGRAPHY NOTE: 1. A negative mammogram report should not delay a biopsy if a dominant of clinically suspicious mass is present. 2. Approximately 10% to 15% of breast cancers are not detected by mammography. 3. Adenosis and dense breasts may obscure an underlying neoplasm. Reported by: REYES MANDUJANO MD Electonically Signed: [id number]
== END 2020-07-31 14:37 | disposition home or self-care (01) ==
LOC: BICMAMMO 14:36
PROVIDERS: ATTEND Family Medicine
DX: Z12.31 Encounter for screening mammogram for malignant neoplasm of breast (principal)
CPT/HCPCS: 77063; 77067

== ENCOUNTER 2020-10-13 06:12 | Day surgery (SDC) | payer MEDICARE ==
--- NOTE | 2020-10-13 09:31 | OP ---
DATE OF PROCEDURE: 10/13/2020 [employer] SURGEON: None. PROCEDURES PERFORMED: Esophagogastroduodenoscopy with biopsies. INDICATIONS: 1. Chronic gastroesophageal reflux disease. 2. Dysphagia, resolved by the time of the exam. MEDICATIONS: See Anesthesia record. FINDINGS: After discussion of the risks, benefits, and alternatives of the procedure, informed consent was obtained and witnessed. Preendoscopic cardiopulmonary examination was satisfactory. Time-out was performed before sedation was achieved. Sedation was achieved with Anesthesia assistance in the endoscopy unit. A Pentax adult upper endoscope was placed into the oropharynx and passed through the cricopharyngeus under direct visualization. The esophageal mucosa appeared normal throughout with a normal-appearing Z-line at 38 cm from the incisors. The endoscope was advanced into the stomach. Forward and retroflexed views of the entire gastric mucosa were obtained. In the gastric body along the greater curvature, there is some erosive gastritis, characterized by several superficial erosions and erythema. There was no active bleeding noted. There were no deep ulcerations noted. The remainder of the gastric mucosa appears normal. Biopsies were obtained from the gastric antrum and body to evaluate for possible Helicobacter pylori infection. The endoscope was advanced through a normal-appearing pylorus and into the first and second portions of the duodenum, which appeared normal. The upper endoscope was completely withdrawn, and the patient allowed to recover. The patient tolerated the procedure well. There were no immediate postprocedure complications. IMPRESSION: 1. Erosive gastritis in the gastric body along the greater curvature, biopsied. 2. Otherwise normal EGD. RECOMMENDATIONS: 1. Continue daily pantoprazole 40 mg for now. 2. Follow up pathology on the gastric biopsies. 3. Clinic followup in 2 months. Job ID: [id number]
[2020-10-13] MEDS ORDERED: PROPOFOL 200 MG/20 ML VIAL ONE (10:18)
[2020-10-13] MEDS ORDERED: Lidocaine 1% PF 5 ML VIAL ONE (10:18)
== END 2020-10-13 09:43 | disposition home or self-care (01) ==
LOC: SDC 06:12
PROVIDERS: ATTEND Internal Medicine
PROC: 0DB78ZX Excision of Stomach, Pylorus, Via Natural or Artificial Opening Endoscopic, Diagnostic (ICD-10-PCS; principal; 2020-10-13)
DX: K29.60 Other gastritis without bleeding (principal); K21.9 Gastro-esophageal reflux disease without esophagitis; I48.91 Unspecified atrial fibrillation; F03.90 Unspecified dementia, unspecified severity, without behavioral disturbance, psychotic disturbance, mood disturbance, and anxiety; F32.9 Major depressive disorder, single episode, unspecified; E78.00 Pure hypercholesterolemia, unspecified; G47.30 Sleep apnea, unspecified; M81.0 Age-related osteoporosis without current pathological fracture; Z87.891 Personal history of nicotine dependence; Z79.02 Long term (current) use of antithrombotics/antiplatelets; Z79.899 Other long term (current) drug therapy; Z95.0 Presence of cardiac pacemaker
CPT/HCPCS: 88305; J2704

== ENCOUNTER 2022-04-28 10:59 | Outpatient (CLI) | payer MEDICARE | END 2022-04-28 11:00 | disposition home or self-care (01) | LOC: BICMAMMO 10:59 | PROVIDERS: ATTEND Family Medicine | DX: Z13.820 Encounter for screening for osteoporosis (principal); N95.9 Unspecified menopausal and perimenopausal disorder; M85.89 Other specified disorders of bone density and structure, multiple sites | CPT/HCPCS: 77080 ==

== ENCOUNTER 2023-02-03 15:23 | Outpatient (CLI) | payer MEDICARE | END 2023-02-03 15:24 | disposition home or self-care (01) | LOC: RAD 15:23 | PROVIDERS: ATTEND Family Medicine | DX: R05.1 Acute cough (principal) | CPT/HCPCS: 71045 ==